=== PATIENT | female | born 1950 | race Caucasian/White ===

== ENCOUNTER 2017-07-01 08:41 | Outpatient (CLI) | payer MEDICARE, BC ==
--- NOTE | 2017-07-01 12:02 | DEXA Report ---
DEXA SCAN: 07/01/2017 CLINICAL INDICATION: Postmenopausal. TECHNIQUE: Dual energy x-ray absorptiometry (DXA) was performed on a [employer] system. Regions measured are the AP spine, femoral neck, and, if needed, forearm. COMPARISON: None. In accordance with the International Society for Clinical Densitometry (ISCD) guidelines, data from previous exams may be reanalyzed using current recommendations and techniques. This is done to allow a more accurate basis for comparison with the current study. FINDINGS: The data for the lumbar spine is as follows: REGION BMD (g/cm/cm) T-SCORE Z-SCORE L1 1.204 0.6 1.9 L2 1.117 -0.7 0.6 L3 1.101 -0.8 0.4 L4 1.113 -0.7 0.5 TOTAL 1.108 -0.8 0.5 NOTE: All evaluable vertebrae are used for classification. The data for the hip is as follows: REGION BMD (g/cm/cm) T-SCORE Z-SCORE Neck 0.756 -2.0 -0.6 TOTAL 0.787 -1.8 -0.6 NOTE: The femoral neck or total proximal femur, whichever is lowest, is used for classification. IMPRESSION: THE WHO CLASSIFICATION BASED ON THE INTERNATIONAL REFERENCE STANDARD IS OSTEOPENIA. THE FRACTURE RISK IS INCREASED. RECOMMENDATION: Patients with diagnosis of osteoporosis or osteopenia should have regular bone mineral density assessment. For those eligible for Medicare, routine testing is allowed once every 2 years. Testing frequency can be increased for patients who have rapidly progressing disease or for those who are receiving medical therapy to restore bone mass. COMMENT: World Health Organization (WHO) definitions for osteoporosis and osteopenia: NORMAL BMD: T-score at -1.0 or higher, fracture risk is low. OSTEOPENIA BMD: T-score between -1.0 and -2.5, fracture risk is increased. OSTEOPOROSIS BMD: T-score at -2.5 or lower, fracture risk high. National Osteoporosis Foundation recommends: 1. Obtain adequate dietary calcium (at least 1200 mg per day) and vitamin D (400 -800 international units per day). 2. Participate, as appropriate, in regular weightbearing and muscle- strengthening exercise. 3. Avoid tobacco use and reduce alcohol and caffeine intake. 4. For more detailed information see the website at www.NOF.org. MTDD
== END 2017-07-01 08:42 | disposition home or self-care (01) ==
LOC: DI 08:41
PROVIDERS: ATTEND Family Medicine
DX: M81.0 Age-related osteoporosis without current pathological fracture (principal)
CPT/HCPCS: 77080

== ENCOUNTER 2017-07-26 09:35 | Emergency (ER) | payer MEDICARE, BC ==
[2017-07-26] MEDS ORDERED: SODIUM CHLORIDE 0.9% 1,000 ML IV ONE (09:49)
[2017-07-26 10:21] LABS: BASOPHILS # (AUTO) 0.1 10^3/uL (0.0-0.1); BASOPHILS % (AUTO) 0.5 %; EOSINOPHILS % (AUTO) 0.1 %; HCT - HEMATOCRIT 35.3 % (37.0-47.0); HGB - HEMOGLOBIN 11.9 g/dL (12.0-16.0); LYMPHOCYTES # (AUTO) 1.2 10^3/uL (1.5-3.5); LYMPHOCYTES % (AUTO) 6.9 %; MEAN CORPUSCULAR HEMOGLOBIN 28.4 pg (27.0-31.0); MEAN CORPUSCULAR HGB CONC 33.6 g/dL (32.0-36.0); MEAN CORPUSCULAR VOLUME 84.5 fL (81.0-99.0); MONOCYTES # (AUTO) 1.1 10^3/uL (0.0-1.0); MONOCYTES % (AUTO) 6.6 %; NEUTROPHILS # (AUTO) 14.3 10^3/uL (1.5-6.6); NEUTROPHILS % (AUTO) 85.9 %; RED BLOOD COUNT 4.18 10^6/uL (4.20-5.40); RED CELL DISTRIBUTION WIDTH 13.6 % (12.0-15.0); UNCORRECTED WHITE BLOOD COUNT 16.7 x10^3/uL; WHITE BLOOD COUNT 16.7 x10^3/uL (4.8-10.8)
[2017-07-26 10:34] LABS: ALBUMIN/GLOBULIN RATIO 1.1 (1.0-2.2); BILIRUBIN,TOTAL 1.6 mg/dL (0.2-1.0); CALCIUM 9.2 mg/dL (8.5-10.3); CREATININE 0.7 mg/dL (0.4-1.0); POTASSIUM 3.3 mmol/L (3.5-5.0); TOTAL PROTEIN 7.6 g/dL (6.7-8.2)
[2017-07-26 11:03] LABS: BILIRUBIN,URINE NEGATIVE (NEGATIVE)
--- NOTE | 2017-07-26 11:04 | XRAY Preliminary Report ---
Exam: XR Chest 1 View IMPRESSION: Normal chest for age and body size, stable. [facility] SITE ID: [id number]
[2017-07-26 11:05] LABS: UA w/ MICROSCOPIC CHARGE YES
--- NOTE | 2017-07-26 11:06 | XRAY Report ---
EXAM: CHEST RADIOGRAPHY, PORTABLE ONE VIEW EXAM DATE: 07/26/2017 10:05 AM. CLINICAL HISTORY: 67-year-old female with syncopal episode. COMPARISON: Two-view chest August 2015 and previous. TECHNIQUE: 1011 our AP upright portable view. FINDINGS: Lungs/Pleura: No focal opacities evident. No pleural effusion. No pneumothorax. Normal volume. Mediastinum: Within exam limitations, cardiomediastinal contour is normal. No pulmonary vascular jacob estion or adenopathy. Other: Trachea is midline. Osseous structures are unremarkable. IMPRESSION: Normal chest for age and body size, stable. [facility] Referring Provider Line: [phone] SITE ID: [id number]
--- NOTE | 2017-07-26 11:06 | XRAY Preliminary Report ---
Exam: XR Wrist 3 View LT IMPRESSION: No fracture or acute posttraumatic abnormality. 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 [facility] SITE ID: [id number]
--- NOTE | 2017-07-26 11:08 | XRAY Report ---
EXAM: LEFT WRIST RADIOGRAPHY, 3 VIEWS EXAM DATE: 07/26/2017 10:33 AM. CLINICAL HISTORY: 67-year-old female with left wrist pain post fall today. COMPARISON: None. TECHNIQUE: Frontal, lateral and oblique views. FINDINGS: Technically limited study due to lack of carpal navicular view. Bones: Unremarkable for age. No fractures or acute bone lesions. Joints: Severe osteoarthritis in the first CMC joint and radial aspect of the carpus. No subluxations or joint effusion. Soft Tissues: Normal. No soft tissue swelling. IMPRESSION: No fracture or acute posttraumatic abnormality. 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 [facility] Referring Provider Line: [phone] SITE ID: [id number]
[2017-07-26 11:21] LABS: WBC,URINE >25 /HPF (0-5)
[2017-07-26] MEDS ORDERED: cefTRIAXone 1 GM in SODIUM CHLORIDE 0.9% MINIBAG 100 ML IV STA (11:22)
[2017-07-26] MEDS ORDERED: ACETAMINOPHEN 325 MG TABLET PO STA (11:22)
[2017-07-26 11:25] LABS: UR CULTURE IF IND INDICATED
[2017-07-26] MEDS ORDERED: ACETAMINOPHEN 325 MG TABLET PO ONE (11:32)
[2017-07-26] MEDS ORDERED: cefTRIAXone 1 GM VIAL ONE (11:32)
[2017-07-26 12:06] VITALS: BP 136/72
[2017-07-26] MEDS ORDERED: oxyCOD/ACETAMIN 5 MG/325 MG TABLET PO STA (12:14)
[2017-07-26] MEDS ORDERED: oxyCOD/ACETAMIN 5 MG/325 MG TABLET PO ONE (12:20)
[2017-07-26] MEDS ORDERED: HYDROcod/ACETAM 5/325 MG TABLET PO STA (12:20)
[2017-07-26] MEDS ORDERED: HYDROcod/ACETAM 5/325 MG TABLET ONE (12:26)
--- NOTE | 2017-07-26 13:26 | ED Physician Documentation ---
History of Present Illness - Stated complaint Stated Complaint: SYNCOPE - Chief complaint Chief Complaint: Neuro - Additonal information Additional information: Patient is a 67-year-old female with a history of urinary tract infections, hypertension diabetes and a distant history of coronary artery disease status post stent. She is here after having a syncopal episode this morning. She has had generalized malaise and sickness for the past several days. She just felt exhausted and tired. She denies any chest pain shortness of breath, nausea, vomiting, constipation diarrhea or lower urinary symptoms. She is felt this way for couple days. The patient went to get up today and believes that she passed out. During the passing an episode she injured her left wrist she denies any injury to her head neck chest abdomen pelvis or other extremities. Review of systems: For pertinent positive and negatives in the review of systems please see the history of present illness, otherwise all other systems have been reviewed and are negative. Dragon disclaimer: Parts of this medical record were created using voice recognition technology. Because of the inherent limitations of this system, occasional same sounding word substitutions do occur and persist despite proofreading. Please read the document for context. Review of Systems Constitutional: reports: Fever, Chills, Myalgias PD PAST MEDICAL HISTORY - Past Medical History Past Medical History: Yes Cardiovascular: Hypertension, Other Respiratory: None Neuro: None Endocrine/Autoimmune: Type 2 diabetes GI: None : Kidney stones HEENT: None Psych: None Musculoskeletal: None Derm: None - Past Surgical History Past Surgical History: Yes General: Cholecystectomy, Appendectomy Ortho: Spine surgery /FOURTH HAND: Hysterectomy Cardiovascular: Coronary stent - Present Medications Home Medications: Ambulatory Orders Medication Instructions Recorded Confirmed Aspirin Chewable [St Tushar 81 mg PO DAILY 08/20/13 08/20/13 Aspirin] Atenolol 50 mg PO 08/20/13 08/20/13 Insulin Glargine,Hum.rec.anlog 49 unit SQ 08/20/13 08/20/13 [Lantus Solostar] Lisinopril [Zestril] 40 mg PO DAILY 08/20/13 08/20/13 Simvastatin [Zocor] 40 mg PO 08/20/13 08/20/13 metFORMIN [Glucophage] 1,000 mg PO BID 08/20/13 08/20/13 Ciprofloxacin [Cipro] 250 BID 11/30/13 11/30/13 HYDROcod/ACETAM 5/325 [Vicodin 1 PRN 11/30/13 11/30/13 5/325] Cephalexin [Keflex] 500 mg PO QID #20 capsule 07/26/17 Hydrocodone/Acetaminophen 1 each PO TID #14 tablet 07/26/17 [Hydrocodon-Acetaminophen 5-325] - Allergies Allergies/Adverse Reactions: Allergies Allergy/AdvReac Type Severity Reaction Status Date / Time hydromorphone HCl * Allergy Severe Nausea Verified 07/26/17 09:44 [From Dilaudid] doxycycline calcium * Allergy Itching Verified 07/26/17 09:44 [From Vibramycin] doxycycline hyclate * Allergy Itching Verified 07/26/17 09:44 [From Vibramycin] doxycycline monohydrate * Allergy Itching Verified 07/26/17 09:44 [From Vibramycin] - Social History Does the pt smoke?: No Smoking Status: Never smoker Does the pt drink ETOH?: No Does the pt have substance abuse?: No - Immunizations Immunizations are current?: Yes - POLST Patient has POLST: No PD ED PE NORMAL - Vitals Vital signs reviewed: Yes - General General: Alert and oriented X 3, No acute distress, Well developed/nourished, Other (Elderly tachycardic female no apparent distress she is alert and oriented and answers questions probably pupils equal round react light oral mucosa moist neck supple) - HEENT HEENT: Atraumatic - Neck Neck: Supple, no meningeal sign - Cardiac Cardiac: RRR, No murmur, No gallop, No rub, Other (Tachycardic no lift heave or murmur) - Respiratory Respiratory: No respiratory distress - Abdomen Abdomen: Normal bowel sounds, Soft, Non tender, Non distended - Derm Derm: Normal color, Warm and dry, No rash, Other - Extremities Extremities: No deformity, No tenderness to palpate, Normal ROM s pain, No edema , Other (Mild circumferential tenderness left wrist without bruising or bony tenderness) - Neuro Neuro: Alert and oriented X 3, No motor deficit Results - Vitals Vitals: Vital Signs - 24 hr 07/26/17 07/26/17 07/26/17 09:40 10:48 12:05 Temperature 36.2 C L 36.7 C 36.6 C Heart Rate 119 H 103 H 94 Respiratory 16 15 15 Rate Blood Pressure 162/82 H 153/65 H 136/72 H O2 Saturation 98 99 99 Oxygen O2 Source Room air - Labs Labs: Laboratory Tests 07/26/17 07/26/17 07/26/17 09:47 10:07 10:07 WBC 16.7 H RBC 4.18 L Hgb 11.9 L Hct 35.3 L MCV 84.5 MCH 28.4 MCHC 33.6 RDW 13.6 Plt Count 259 MPV 9.0 Neut # 14.3 H Lymph # 1.2 L [place] # 1.1 H Eos # 0.0 Baso # 0.1 Absolute Nucleated RBC 0.00 Nucleated RBCs 0.0 Sodium 136 Potassium 3.3 L Chloride 101 Carbon Dioxide 25 Anion Gap 10.0 BUN 12 Creatinine 0.7 Estimated GFR (MDRD) 83 L Glucose 197 H POC Whole Bld Glucose 230 H Calcium 9.2 Total Bilirubin 1.6 H AST 32 ALT 44 Alkaline Phosphatase 60 Troponin I B-Natriuretic Peptide Total Protein 7.6 Albumin 3.9 Globulin 3.7 Albumin/Globulin Ratio 1.1 Lipase 27 Urine Color Urine Clarity Urine pH Ur Specific [place] Urine Protein Urine Glucose (UA) Urine Ketones Urine Occult Blood Urine Nitrite Urine Bilirubin Urine Urobilinogen Ur Leukocyte Esterase Urine RBC Urine WBC Urine WBC Clumps Ur Epithelial Cells Ur Squamous Epith Cells Urine Bacteria Urine Mucus Ur Microscopic Review Urine Culture Comments 07/26/17 07/26/17 07/26/17 10:07 10:07 10:33 WBC RBC Hgb Hct MCV MCH MCHC RDW Plt Count MPV Neut # Lymph # [place] # Eos # Baso # Absolute Nucleated RBC Nucleated RBCs Sodium Potassium Chloride Carbon Dioxide Anion Gap BUN Creatinine Estimated GFR (MDRD) Glucose POC Whole Bld Glucose Calcium Total Bilirubin AST ALT Alkaline Phosphatase Troponin I < 0.04 B-Natriuretic Peptide 46 Total Protein Albumin Globulin Albumin/Globulin Ratio Lipase Urine Color DARK YELLOW Urine Clarity HAZY Urine pH 6.0 Ur Specific [place] 1.010 Urine Protein NEGATIVE Urine Glucose (UA) NEGATIVE Urine Ketones TRACE Urine Occult Blood MODERATE H Urine Nitrite NEGATIVE Urine Bilirubin NEGATIVE Urine Urobilinogen 0.2 (NORMAL) Ur Leukocyte Esterase LARGE H Urine RBC 0-5 Urine WBC >25 H Urine WBC Clumps PRESENT Ur Epithelial Cells None Seen Ur Squamous Epith Cells NONE SEEN Urine Bacteria Few Urine Mucus Few Strands Ur Microscopic Review INDICATED Urine Culture Comments INDICATED PD MEDICAL DECISION MAKING - ED course Complexity details: reviewed old records, reviewed results, re-evaluated patient , d/w patient, d/w family ED course: Very nice 67-year-old female who had been sick for couple days culminating a syncopal episode today and injury to her left wrist. CAT scan of the head and chest x-ray are unremarkable. EKG shows normal sinus rhythm with a normal [place] QRS QT interval without ST segment elevation depression T-wave inversion. Mild tachycardia is noted. Blood work on this patient shows a elevated white blood cell count. The rest of her labs troponin are normal. Urine was suggestive of a urinary tract infection. She is given 1 L of saline and IV Rocephin as well as parenteral narcotic analgesia and she feels much better. X-rays of the right wrist are unremarkable for bony fracture dislocation. She was placed in a thumb spica Velcro splint for comfort. At this point she looks and feels much better. I think her symptoms are secondary to urinary tract infection in regards to the generalized malaise and fatigue that preceded the syncopal episode. There is no evidence of cardiac syncope. Disposition to home Clinical impression: 1. Acute urinary tract infection 2. Vasovagal syncope-doubt cardiac cause 3. Left wrist sprain Departure - Departure Disposition: Home, Self Care Clinical Impression: Syncope Qualifiers: Syncope type: vasovagal syncope Qualified Code(s): R55 - Syncope and collapse Urinary tract infection Qualifiers: Urinary tract infection type: acute cystitis Hematuria presence: without hematuria Qualified Code(s): N30.00 - Acute cystitis without hematuria Left wrist sprain Qualifiers: Encounter type: initial encounter Qualified Code(s): S63.502A - Unspecified sprain of left wrist, initial encounter Instructions: ED Syncope Vasovagal, ED UTI Cystitis Female, ED Sprain Wrist Follow-Up: Karla Echols MD [Primary Care Provider] - Prescriptions: Hydrocodone/Acetaminophen [Hydrocodon-Acetaminophen 5-325] 1 each PO TID #14 tablet Cephalexin [Keflex] 500 mg PO QID #20 capsule
== END 2017-07-26 13:25 | disposition home or self-care (01) ==
LOC: ED 09:35
DX: R55 Syncope and collapse (principal); N30.00 Acute cystitis without hematuria; S63.502A Unspecified sprain of left wrist, initial encounter; X58.XXXA Exposure to other specified factors, initial encounter; R00.0 Tachycardia, unspecified; I10 Essential (primary) hypertension; E11.8 Type 2 diabetes mellitus with unspecified complications; I25.10 Atherosclerotic heart disease of native coronary artery without angina pectoris; Z95.5 Presence of coronary angioplasty implant and graft; Z79.4 Long term (current) use of insulin; Z79.82 Long term (current) use of aspirin
CPT/HCPCS: 36415; 71010; 73110; 80053; 81001; 83690; 83880; 84484; 85025; 87086; 93005; 96374; 99284; A9270; 81003

== ENCOUNTER 2017-08-03 11:16 | Outpatient (CLI) | payer MEDICARE, BC | END 2017-08-03 11:17 | disposition home or self-care (01) | LOC: LAB.R 11:16 | PROVIDERS: ATTEND Family Medicine | DX: N39.0 Urinary tract infection, site not specified (principal); D72.829 Elevated white blood cell count, unspecified | CPT/HCPCS: 87086 ==

== ENCOUNTER 2017-11-25 17:03 | Outpatient (CLI) | payer MEDICARE, BC | END 2017-11-25 17:04 | disposition critical access hospital (66) | LOC: EMS 17:03 | PROVIDERS: ATTEND Surgery | DX: M25.552 Pain in left hip (principal) | CPT/HCPCS: A0425; A0429 ==

== ENCOUNTER 2017-11-25 17:25 | Observation (INO) | payer MEDICARE, BC ==
[2017-11-25] MEDS ORDERED: LIDOCAINE PATCH 5% TOP STA (18:23)
[2017-11-25] MEDS ORDERED: KETOROLAC 60 MG/2 ML VIAL IM STA (18:23)
--- NOTE | 2017-11-25 18:38 | XRAY Report ---
EXAM: LEFT HIP AND PELVIS RADIOGRAPHY EXAM DATE: 11/25/2017 06:14 PM. HISTORY: Pain while walking. COMPARISONS: None. TECHNIQUE: 1 view of the pelvis and 1 view of the hip. FINDINGS: Bones: Normal. No fracture or bone lesion. Joints: The bilateral hip, pubis symphysis, and sacroiliac joints are preserved. Soft Tissues: There is spurring of both greater trochanters which appears chronic. IMPRESSION: No fracture or subluxation. [facility] Referring Provider Line: [phone] SITE ID: [id number]
--- NOTE | 2017-11-25 19:17 | ED Physician Documentation ---
History of Present Illness - Stated complaint Stated Complaint: L HIP PX - Chief complaint Chief Complaint: Ext Problem - Additonal information Additional information: hx from pt 67 female pmhx HTN DM CAD kidney stones s/p appy maged hyst lithotripsy kyphoplasty has had some hip pain for about 2 week int today while walking became severe she was able to hobble home but after resting she was not able to get up 2/2 pain pain is to lat l foot and radiates down anterior leg past the knee no back pain no abd pain no numbness or weakness hurts to move the hip or touch the hip Review of Systems Constitutional: denies: Fever Cardiac: denies: Chest pain / pressure Respiratory: denies: Dyspnea GI: denies: Abdominal Pain Musculoskeletal: reports: Joint pain. 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 Cardiovascular: Coronary stent - Present Medications Home Medications: Ambulatory Orders Medication Instructions Recorded Confirmed Aspirin Chewable [St Tushar 81 mg PO DAILY 08/20/13 11/26/17 Aspirin] Simvastatin [Zocor] 20 mg PO QPM 08/20/13 11/26/17 metFORMIN [Glucophage] 1,000 mg PO BIDWM 08/20/13 11/26/17 Insulin Glargine,Hum.rec.anlog 15 units SUBQ QPM 11/25/17 11/26/17 [Basaglar Kwikpen U-100] Losartan [Cozaar] 50 mg PO DAILY 11/25/17 11/26/17 hydroCHLOROthiazide 25 mg PO DAILY 11/25/17 11/26/17 [Hydrochlorothiazide] Cholecalciferol (Vitamin D3) 2,000 units PO DAILY 11/26/17 11/26/17 [Vitamin D3] Gabapentin [Neurontin] 300 mg PO TID #30 capsule 11/26/17 HYDROcodone/ACET 10/325 [[place] 10 1 tab PO Q4HR PRN #30 tablet 11/26/17 mg/325 mg] Ibuprofen [Motrin] 600 mg PO Q6H PRN #30 tab 11/26/17 cephALEXin [Cephalexin] 500 mg PO QID 7 Days #28 tablet 11/26/17 diazePAM [Valium] 5 - 10 mg PO TID PRN #15 tablet 11/26/17 - Allergies Allergies/Adverse Reactions: Allergies Allergy/AdvReac Type Severity Reaction Status Date / Time hydromorphone HCl * Allergy Severe Nausea Verified 11/25/17 17:33 [From Dilaudid] doxycycline calcium * Allergy Itching Verified 11/25/17 17:33 [From Vibramycin] doxycycline hyclate * Allergy Itching Verified 11/25/17 17:33 [From Vibramycin] doxycycline monohydrate * Allergy Itching Verified 11/25/17 17:33 [From Vibramycin] oxycodone [From Roxicodone] Allergy Rash Verified 11/25/17 19:51 - Social History Does the pt smoke?: No Smoking Status: Never smoker Does the pt drink ETOH?: No Does the pt have substance abuse?: No - Immunizations Immunizations are current?: Yes - POLST Patient has POLST: No PD ED PE NORMAL - Vitals Vital signs reviewed: Yes - Cardiac Cardiac: RRR - Respiratory Respiratory: No respiratory distress, Clear bilaterally - Abdomen Abdomen: Soft, Non tender, Other (no pulsatile mass) - Derm Derm: Normal color, No rash - Extremities Extremities: No deformity, Other (L hip - no red or warm, no swollen no defmormity, no short or rotated, pain to palpate lateral and pain with ROM flex ext more than int ext rotation, MSV intact, no radicular pain with SLR) Results - Vitals Vitals: Vital Signs - 24 hr 11/25/17 11/25/17 17:27 19:09 Temperature 36.3 C L Heart Rate 93 87 Respiratory 17 16 Rate Blood Pressure 173/79 H 143/77 H O2 Saturation 99 97 Oxygen O2 Source Room air - Labs Labs: Microbiology 11/25/17 17:44 Urine Culture - Preliminary Urine,Clean Catch CULTURE IN PROGRESS. RESULTS TO FOLLOW. Laboratory Tests 11/25/17 11/25/17 11/25/17 17:44 19:47 19:47 WBC 10.3 RBC 4.42 Hgb 12.7 Hct 37.1 MCV 84.1 MCH 28.8 MCHC 34.3 RDW 14.2 Plt Count 314 MPV 8.4 Neut # 6.8 H Lymph # 2.6 [place] # 0.8 Eos # 0.1 Baso # 0.1 Absolute Nucleated RBC 0.00 Nucleated RBC % 0.0 ESR 13 Sodium Potassium Chloride Carbon Dioxide Anion Gap BUN Creatinine Estimated GFR (MDRD) Glucose Calcium C-Reactive Protein Urine Color YELLOW Urine Clarity HAZY Urine pH 7.0 Ur Specific [place] 1.010 Urine Protein NEGATIVE Urine Glucose (UA) NEGATIVE Urine Ketones NEGATIVE Urine Occult Blood SMALL H Urine Nitrite NEGATIVE Urine Bilirubin NEGATIVE Urine Urobilinogen 0.2 (NORMAL) Ur Leukocyte Esterase MODERATE H Urine RBC 6-10 H Urine WBC >25 H Urine WBC Clumps PRESENT Ur Squamous Epith Cells RARE Squamous Urine Bacteria Rare Urine Mucus Few Strands Ur Microscopic Review INDICATED Urine Culture Comments INDICATED 11/25/17 19:47 WBC RBC Hgb Hct MCV MCH MCHC RDW Plt Count MPV Neut # Lymph # [place] # Eos # Baso # Absolute Nucleated RBC Nucleated RBC % ESR Sodium 135 Potassium 3.0 L Chloride 98 L Carbon Dioxide 27 Anion Gap 10.0 BUN 9 Creatinine 0.6 Estimated GFR (MDRD) 99 Glucose 121 H Calcium 9.1 C-Reactive Protein < 1.0 Urine Color Urine Clarity Urine pH Ur Specific [place] Urine Protein Urine Glucose (UA) Urine Ketones Urine Occult Blood Urine Nitrite Urine Bilirubin Urine Urobilinogen Ur Leukocyte Esterase Urine RBC Urine WBC Urine WBC Clumps Ur Squamous Epith Cells Urine Bacteria Urine Mucus Ur Microscopic Review Urine Culture Comments - Rads (name of study) hip Radiology: See rad report (neg) CT AP Radiology: See rad report (3 mm L ureteral stone with hydro) CT L spine Radiology: See rad report (no acute lumbar spine fx or dislocation, remote L1 L4 compression fx, degen changes) PD MEDICAL DECISION MAKING - ED course ED course: insidious onset severe LLE pain in a healthy 67 female with a hx L spine comp fx s/p kyphoplasty and osteoporosis acutely worse while walking gave toradol and lido s relief xray neg went to re-evaluate pt and family displeased with pain meds given so far I re-evaluated pt - she winces and holds her hip when i pull on the lidocaine patch to remove it to recheck the hip that would be unlikely to aggravate bony pathology no rash seen to suggest shingles and she has had pain to some extend for weeks so rash should be apparent by now still no sig erythema or swelling pain with ROM, no posterior pelvis or L spine TTP on exam still no abd TTP and no pulsatile mass to suggest AAA could be radicular / sciatica given age will get CT AP and L spine also check labs UA CRP ESR will give decadron for possible nerve inflammation and try hydrocodone as need to know if pt can be made comfortable enough to dc home to pursue outpt workup if ED wup comes up neg if ED work up is neg and pt is able to ambulate after dex and hydrocodone will likely dc with oxy, steroid taper walker and PMD and ortho fup SUMMARY OF WORK UP no fx on xray or CT no infection on exam, also aferbile nl WBC and nl ESR CRP, do not think pt has cellulitis shingles septic joint or nec fasc, does not have back/L spine pain, CT L spine neg and nl ESR and CR make epidural abscess unlikely as well 3 mm ureteral stone on CT and + UA so have given antibiotics but doubt would cause hip pain with ROM and palapation of lateral hip - and only a 3 mm stone and only mild hydro so will add antibiotics but do not feel pt needs emergent urology eval as the stone should pass without sig difficulty - would normally consider sending this combo home with close follow up no AAA no compression fx no pelvic mass, bony mets etc not the location to raise suspicion of DVT good perfusion not suggestive of ischemia carefully and full explained to pt that have done a very extensive work up tonight and I have not found any dangerous problem to be causing her pain that needs antibiotic surgery etc recommended dc home with vicodin steroid taper lido patches and a walker to fup with PMD for a recheck and further work up eval as needed explained also that I am not saying nothing is wrong or won't be diagnosed at a later date as sx progress etc but family and pt do not feel the pt can go home safely, she does not feel able to walk, does not think she will be able to ride in the car if the pt needs to be sent home by ambulance and carried into the house - that is not a safe dc plan explained to pt and family that admitting for pain alone without a diagnosis meriting tx while admitted (such as surgery or IV antibiotics) is at risk for not being covered by insurance and that we might be able to admit for pain and safety but they might have to pay the pill themselves if insurance does not cover - there is no way for me to know tonight if this will or won't be covered or how much it might cost pt agrees to try and ambulate with a walker pt could not ambulate - could not get out of bed at all asked hospitalist to please come eval for admission hospitalist agrees to admit to obs Departure - Departure Disposition: ED Place in Observation Clinical Impression: Renal colic on left side Hip pain Qualifiers: Laterality: left Qualified Code(s): M25.552 - Pain in left hip UTI (urinary tract infection) Qualifiers: Urinary tract infection type: site unspecified Hematuria presence: with hematuria Qualified Code(s): N39.0 - Urinary tract infection, site not specified Condition: Stable Discharge Date/Time: 11/25/17 23:07
[2017-11-25] MEDS ORDERED: oxyCODONE 5 MG TABLET PO STA (19:30)
[2017-11-25] MEDS ORDERED: DEXAMETHASONE 10 MG/ML VIAL PO STA (19:32)
[2017-11-25] MEDS ORDERED: HYDROcod/ACETAM 5/325 MG TABLET PO STA (19:45)
[2017-11-25] MEDS ORDERED: CHERRY SYRUP 10 ML UDC PO ONE (19:46)
[2017-11-25 20:11] LABS: BASOPHILS # (AUTO) 0.1 10^3/uL (0.0-0.1); BASOPHILS % (AUTO) 0.7 %; EOSINOPHILS # (AUTO) 0.1 10^3/uL (0.0-0.7); HGB - HEMOGLOBIN 12.7 g/dL (12.0-16.0); LYMPHOCYTES # (AUTO) 2.6 10^3/uL (1.5-3.5); MEAN CORPUSCULAR HEMOGLOBIN 28.8 pg (27.0-31.0); MEAN CORPUSCULAR HGB CONC 34.3 g/dL (32.0-36.0); MEAN CORPUSCULAR VOLUME 84.1 fL (81.0-99.0); MEAN PLATELET VOLUME 8.4 fL (7.9-10.8); MONOCYTES # (AUTO) 0.8 10^3/uL (0.0-1.0); MONOCYTES % (AUTO) 7.6 %; NEUTROPHILS # (AUTO) 6.8 10^3/uL (1.5-6.6); NEUTROPHILS % (AUTO) 65.7 %; PLT - PLATELET COUNT 314 10^3/uL (130-450); RED BLOOD COUNT 4.42 10^6/uL (4.20-5.40); RED CELL DISTRIBUTION WIDTH 14.2 % (12.0-15.0); WHITE BLOOD COUNT 10.3 x10^3/uL (4.8-10.8)
[2017-11-25 20:21] LABS: BUN - BLOOD UREA NITROGEN 9 mg/dL (6-20); CALCIUM 9.1 mg/dL (8.5-10.3); CARBON DIOXIDE - CO2 27 mmol/L (21-32); CHLORIDE 98 mmol/L (101-111); CREATININE 0.6 mg/dL (0.4-1.0); GFR - MDRD 99 (>89); GLUCOSE 121 mg/dL (70-100); SODIUM 135 mmol/L (135-145)
[2017-11-25 20:24] LABS: CRP - C-REACTIVE PROTEIN < 1.0 mg/dL (0-1.0)
--- NOTE | 2017-11-25 20:32 | CT Report ---
EXAM: CT ABDOMEN AND PELVIS EXAM DATE: 11/25/2017 08:20 PM. CLINICAL HISTORY: Severe LLE pain, eval for referred pain from abd p. COMPARISONS: 12/01/2013. TECHNIQUE: Routine axial helical CT imaging was performed through the abdomen and pelvis without IV c ontrast. Reconstructions: Coronal and sagittal. In accordance with CT protocol optimization, one or more of the following dose reduction techniques w ere utilized for this exam: automated exposure control, adjustment of mA and/or KV based on patient s ize, or use of iterative reconstructive technique. FINDINGS: Lung Bases: Unremarkable. Abdominal Organs: There is bilateral nephrolithiasis. There is mild left hydronephrosis and hydrouret er secondary to a 0.3 cm stone within the low left ureter. The liver, spleen, pancreas, and adrenal g lands demonstrate no significant abnormalities. Gallbladder/bile ducts: The gallbladder is surgically absent. No significant bile duct dilatation. Peritoneal Cavity: No free fluid, free air or anastacio adenopathy. Bowel is grossly unremarkable. Pelvic Organs: No bladder stones or wall thickening. Noncontrast images of the visualized pelvic orga ns are unremarkable. Vasculature: Unremarkable. Other: There are remote L1 and L4 compression fractures. No acute bony abnormalities are seen. IMPRESSION: There is bilateral nephrolithiasis. There is mild left hydronephrosis and hydroureter secondary to a 0.3 cm stone within the low left ureter. Referring Provider Line: [phone] SITE ID: [id number]
[2017-11-25] MEDS ORDERED: POTASSIUM CHLORIDE 20 MEQ TABLET PO STA (20:37)
--- NOTE | 2017-11-25 20:44 | CT Report ---
EXAM: CT LUMBAR SPINE WITHOUT CONTRAST EXAM DATE: 11/25/2017 08:18 PM. CLINICAL HISTORY: L hip and leg pain, hx compression fx. COMPARISONS: 12/01/2013. TECHNIQUE: Thin-section axial images were acquired of the lumbar spine from T12 to S1 without contras t. Post-processing: Coronal and sagittal reformats. Other: None. In accordance with CT protocol optimization, one or more of the following dose reduction techniques w ere utilized for this exam: automated exposure control, adjustment of mA and/or KV based on patient s ize, or use of iterative reconstructive technique. FINDINGS: Alignment: No evidence of spondylolisthesis. Bones: Bones are osteopenic. There are remote L1 and L4 compression fractures. No clearly acute bony abnormalities are seen. Disk Levels/Facets: T12-L1: Unremarkable. L1-L2: There is mild spinal stenosis and right-sided neural foraminal narrowing secondary to bony ret ropulsion and facet arthrosis. L2-L3: Unremarkable. L3-L4: There is moderate spinal stenosis and neural foramen narrowing secondary to disk bulge, ligame ntum flavum hypertrophy, and facet arthrosis. L4-L5: Unremarkable. L5-S1: Unremarkable. Musculature: Normal. No fatty atrophy. Other: The visualized retroperitoneum is unremarkable. IMPRESSION: 1. No evidence of acute lumbar spine fracture or dislocation. 2. There are remote L1 and L4 compression fractures. 3. There is degenerative disease which is most pronounced at the L1-L2 and L3-L4 levels. 4. Intra-abdominal findings are detailed separately. [facility] Referring Provider Line: [phone] SITE ID: [id number]
[2017-11-25 21:07] LABS: BILIRUBIN,URINE NEGATIVE (NEGATIVE); GLUCOSE, URINE (UA) NEGATIVE (NEGATIVE); KETONES,URINE (UA) NEGATIVE (NEGATIVE); LEUKOCYTE ESTERASE, URINE MODERATE (NEGATIVE); NITRITE,URINE NEGATIVE (NEGATIVE); OCCULT BLOOD,URINE SMALL (NEGATIVE); PROTEIN,URINE NEGATIVE (NEGATIVE); UROBILINOGEN,URINE 0.2 (NORMAL) E.U./dL (NORMAL)
[2017-11-25 21:08] LABS: CLARITY,URINE HAZY (CLEAR)
[2017-11-25 21:15] LABS: BACTERIA,URINE Rare /HPF (None Seen); MUCUS,URINE Few Strands; SQUAMOUS EPITHELIAL CELL,UR RARE Squamous (<= Few); WBC CLUMPS,URINE PRESENT
[2017-11-25] MEDS ORDERED: cephALEXin 250 MG CAPSULE PO STA (21:23)
[2017-11-25] MEDS ORDERED: HYDROcod/ACET 5/325 Prepack 6 PO STA (21:23)
[2017-11-25] MEDS ORDERED: CEPHALEXIN 250 MG Prepack 8 PO ONE (21:23)
[2017-11-25] MEDS ORDERED: SODIUM CHLORIDE FLUSH 0.9% 10 ML SYRINGE IVP PRN (22:08)
--- NOTE | 2017-11-25 22:27 | HISTORY & PHYSICAL EXAMINATION ---
Chief Complaint - Chief Complaint Chief Complaint: Intractable pain History of Present Illness - Admitted From Admitted From:: Home - History of Present Illness HPI Comment/Other: Ms. Sadie Berman is a very pleasant 67-year-old female who typically walks 3 miles a day. About a week ago she has been began to experience some left hip pain as well as a knot in the area. This has continued to worsen and the patient has had an increasingly noticeable limp according to her daughters.Radiate down to her mendez and became intractable and she came to the emergency department at the [facility][1]. A full workup has been unable to detect any physical source of the pain however the patient's pain remains intractable and she will be admitted for the intractable pain at this time. 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 - Substance History Use: Uses substance without health or social issues: NONE Abuse: Recurrent use of substance despite neg consequences: NONE Dependence: Experiences withdrawal or developed tolerances: NONE - POLST Patient has POLST: No POLST Status: Full Code Meds/Allgy - Home Medications Home Medications: Ambulatory Orders Medication Instructions Recorded Confirmed Aspirin Chewable [[place] 81 mg PO DAILY 08/20/13 11/25/17 Aspirin] Simvastatin [Zocor] 20 mg PO DAILY 08/20/13 11/25/17 metFORMIN [Glucophage] 1,000 mg PO BID 08/20/13 11/25/17 HYDROcod/ACETAM 5/325 [[place] 5/325] 1 ea PO Q6H PRN #15 tablet 11/25/17 Hydrocodone/Acetaminophen 1 each PO TID PRN 11/25/17 11/25/17 [Hydrocodon-Acetaminophen 5-325] Insulin Glargine,Hum.rec.anlog 15 units SUBQ QPM 11/25/17 11/25/17 [Basaglar Kwikpen U-100] Lidocaine Patch 5% [Lidoderm Patch] 1 each TOP DAILY PRN #10 patch 11/25/17 Losartan [Cozaar] 50 mg PO DAILY 11/25/17 11/25/17 Tamsulosin [Flomax] 0.4 mg PO DAILY #7 capsule 11/25/17 hydroCHLOROthiazide 50 mg PO DAILY 11/25/17 11/25/17 [Hydrochlorothiazide] - Allergies Allergies/Adverse Reactions: Allergies Allergy/AdvReac Type Severity Reaction Status Date / Time hydromorphone HCl * Allergy Severe Nausea Verified 11/25/17 17:33 [From Dilaudid] doxycycline calcium * Allergy Itching Verified 11/25/17 17:33 [From Vibramycin] doxycycline hyclate * Allergy Itching Verified 11/25/17 17:33 [From Vibramycin] doxycycline monohydrate * Allergy Itching Verified 11/25/17 17:33 [From Vibramycin] oxycodone [From Roxicodone] Allergy Rash Verified 11/25/17 19:51 Review of Systems - Constitutional Constitutional: denies: Fatigue, Fever, Chills - Eyes Eyes: denies: Pain, Irritation, Blurred vision - Ears, Nose & Throat Ears, Nose & Throat: denies: Ear pain, Hearing loss, Hearing aids, Tinnitus, Vertigo, Nasal discharge - Cardiovascular Cariovascular: denies: Irregular heart rate, Palpitations, Chest pain, Edema - Respiratory Respiratory: denies: Cough, Sputum production, Wheezing, Snoring - Gastrointestinal Gastrointestinal: denies: Abdominal pain, Abdominal distention, Constipation, Diarrhea, Rectal bleeding - Genitourinary Genitourinary: denies: Dysuria, Frequency, Urgency, Hematuria - Musculoskeletal Musculoskeletal: reports: Joint pain. denies: Muscle pain, Back pain, Muscle aches - Integumentary Integumentary: denies: Rash, Pruritis, Lesions, Dryness - Neurological Neurological: denies: General weakness, Focal weakness, Headache, Dizziness - Psychiatric Psychiatric: denies: Depression, Anxiety, Suicidal - Endocrine Endocrine: denies: Polyuria, Polydypsia, Polyphagia - Hematologic/Lymphatic Hematologic/Lymphatic: denies: Anemia, Bruising, Petechiae - All Other Systems All Other Systems: reports: Reviewed and negative Exam - Vital Signs Reviewed Vital Signs: Yes Vital Signs: Vital Signs x48h Temp Pulse Resp BP Pulse Ox 11/25/17 19:09 87 16 143/77 H 97 11/25/17 17:27 36.3 C L 93 17 173/79 H 99 - Physical Exam General Appearance: positive: No acute distress, Alert Eyes Bilateral: positive: Normal inspection, PERRL, EOMI ENT: positive: ENT inspection nml, Pharynx nml, No signs of dehydration Neck: positive: Nml inspection, Thyroid nml, No JVD, Trachea midline. negative : Thyromegaly Respiratory: positive: Chest non-tender, No respiratory distress, Breath sounds nml Cardiovascular: positive: Regular rate & rhythm, No murmur, No gallop. negative : Systolic murmur, Diastolic murmur Peripheral Pulses: positive: 1+ Abdomen: positive: Non-tender, No organomegaly, Nml bowel sounds, No distention. negative: Guarding, Rebound Back: positive: Nml inspection. negative: CVA tenderness (R), CVA tenderness (L ) Skin: positive: Color nml, No rash, Warm, Dry Extremities: positive: No pedal edema. negative: Full ROM, Nml appearance, Calf tenderness, Joint swelling Neurologic/Psychiatric: positive: Oriented x3, CN's nml (2-12), Motor nml, Sensation nml, Mood/affect nml Conclusion/Plan - Problem List (1) Hip pain Conclusion/Plan: The workup has been negative for any pathologic issues thus far. We will start the patient on oxycodone for her acute pain and obtain a consultation with orthopedic surgery. Qualifiers: Laterality: left Qualified Code(s): M25.552 - Pain in left hip - Lab Results Lab results reviewed: Yes Fish Bones: 11/25/17 19:47 11/25/17 19:47 - Diagnostic Imaging Results Diagnostic Imaging Results: positive: Final report reviewed Diagnostic Imaging Results Comments: EXAM: LEFT HIP AND PELVIS RADIOGRAPHY EXAM DATE: 11/25/2017 06:14 PM. HISTORY: Pain while walking. COMPARISONS: None. TECHNIQUE: 1 view of the pelvis and 1 view of the hip. FINDINGS: Bones: Normal. No fracture or bone lesion. Joints: The bilateral hip, pubis symphysis, and sacroiliac joints are preserved. Soft Tissues: There is spurring of both greater trochanters which appears chronic. IMPRESSION: No fracture or subluxation. EXAM: CT ABDOMEN AND PELVIS EXAM DATE: 11/25/2017 08:20 PM. CLINICAL HISTORY: Severe LLE pain, eval for referred pain from abd p. COMPARISONS: 12/01/2013. TECHNIQUE: Routine axial helical CT imaging was performed through the abdomen and pelvis without IV contrast. Reconstructions: Coronal and sagittal. In accordance with CT protocol optimization, one or more of the following dose reduction techniques were utilized for this exam: automated exposure control, adjustment of mA and/or KV based on patient size, or use of iterative reconstructive technique. FINDINGS: Lung Bases: Unremarkable. Abdominal Organs: There is bilateral nephrolithiasis. There is mild left hydronephrosis and hydroureter secondary to a 0.3 cm stone within the low left ureter. The liver, spleen, pancreas, and adrenal glands demonstrate no significant abnormalities. Gallbladder/bile ducts: The gallbladder is surgically absent. No significant bile duct dilatation. Peritoneal Cavity: No free fluid, free air or anastacio adenopathy. Bowel is grossly unremarkable. Pelvic Organs: No bladder stones or wall thickening. Noncontrast images of the visualized pelvic organs are unremarkable. Vasculature: Unremarkable. Other: There are remote L1 and L4 compression fractures. No acute bony abnormalities are seen. IMPRESSION: There is bilateral nephrolithiasis. There is mild left hydronephrosis and hydroureter secondary to a 0.3 cm stone within the low left ureter. EXAM: CT LUMBAR SPINE WITHOUT CONTRAST EXAM DATE: 11/25/2017 08:18 PM. CLINICAL HISTORY: L hip and leg pain, hx compression fx. COMPARISONS: 12/01/2013. TECHNIQUE: Thin-section axial images were acquired of the lumbar spine from T12 to S1 without contrast. Post-processing: Coronal and sagittal reformats. Other: None. In accordance with CT protocol optimization, one or more of the following dose reduction techniques were utilized for this exam: automated exposure control, adjustment of mA and/or KV based on patient size, or use of iterative reconstructive technique. FINDINGS: Alignment: No evidence of spondylolisthesis. Bones: Bones are osteopenic. There are remote L1 and L4 compression fractures. No clearly acute bony abnormalities are seen. Disk Levels/Facets: T12-L1: Unremarkable. L1-L2: There is mild spinal stenosis and right-sided neural foraminal narrowing secondary to bony retropulsion and facet arthrosis. L2-L3: Unremarkable. L3-L4: There is moderate spinal stenosis and neural foramen narrowing secondary to disk bulge, ligamentum flavum hypertrophy, and facet arthrosis. L4-L5: Unremarkable. L5-S1: Unremarkable. Musculature: Normal. No fatty atrophy. Other: The visualized retroperitoneum is unremarkable. IMPRESSION: 1. No evidence of acute lumbar spine fracture or dislocation. 2. There are remote L1 and L4 compression fractures. 3. There is degenerative disease which is most pronounced at the L1-L2 and L3- L4 levels. 4. Intra-abdominal findings are detailed separately. Core Measures - Anticipated LOS I expect patient to be DC'd or transferred within 96 hours.: Yes - DVT/VTE - Prophylaxis VTE/DVT Device ordered at admit?: Yes
[2017-11-26] MEDS: HYDROcod/ACETAM 10 MG/325 MG TABLET PO PRN ×3 (00:26→10:57)
[2017-11-26] MEDS ORDERED: SODIUM CHLORIDE FLUSH 0.9% 10 ML SYRINGE IVP SCH (06:00)
[2017-11-26] MEDS ORDERED: NON FORMULARY MED (Simvastatin [Zocor] 20 MG) PO SCH (09:00)
[2017-11-26] MEDS ORDERED: ASPIRIN CHEW 81 MG TABLET PO SCH (09:00)
[2017-11-26] MEDS ORDERED: LOSARTAN 50 MG TABLET PO SCH (09:00)
[2017-11-26] MEDS ORDERED: POLYETHYLENE GLYCOL 3350 17 GM PACKET PO SCH (09:00)
[2017-11-26] MEDS ORDERED: hydroCHLOROthiazide 25 MG TABLET PO SCH (09:00)
--- NOTE | 2017-11-26 11:04 | Discharge Plan ---
Discharge Plan Disposition: 01 Home, Self Care Condition: Stable Prescriptions: HYDROcodone/ACET 10/325 [[place] 10 mg/325 mg] 1 tab PO Q4HR PRN #30 tablet PRN Reason: Pain 8 to 10 cephALEXin [Cephalexin] 500 mg PO QID 7 Days #28 tablet diazePAM [Valium] 5 - 10 mg PO TID PRN #15 tablet PRN Reason: Spasms Gabapentin [Neurontin] 300 mg PO TID #30 capsule Ibuprofen [Motrin] 600 mg PO Q6H PRN #30 tab PRN Reason: Pain Diet: Diabetic Activity Restrictions: Activity as Tolerated (Try to rest for the next 5-7 days) Shower Restrictions: No Driving Restrictions: No Weight Bearing: Full Weight Additional Instructions or Follow Up instructions: The hip is not red or warm and I don't think there is an infected joint. The blood work also indicates there is not a joint infection These labs and CT scan also make a spine infection very unlikely There is no rash to suggest shingles as the cause for the one sided pain The xray and CT scan did not show any bony problems of the hip such as a fracture or dislocation. The CT scan did show a left sided kidney stone and you have a urine infection - this can commonly cause left flank, low abdomen, and groin pain - perhaps that is part of the reason the hip is hurting - though I wouldn't expect kidney stone pain to worsen with palpating and moving the hip - the stone is small enough that it should pass on it's own - given the coinciding infection i think it is very important for you to have close follow up with your PMD to be sure the stone passes and the infection clears - please filter your urine to help determine when the stone has passed. Also the CT scan did not show any aneurysm or bone cancer or pelvic mass to cause your pain. The pain seems to be nerve related / sciatica as it runs down your leg. There also appears to be an inflamed bursa near your hip. I think it is safe for you to go home with gabapentin for nerve pain, valium to relax the muscles, motrin for mild pain, vicodin for severe pain and antibiotics for the urine infection. Close follow up with your PMD is very important - it is not uncommon for a diagnosis that was not apparent initially to become apparent as time passes and the symptoms progress. If course you can always come back to the ER if you are worse in any way No Smoking: If you smoke, Please STOP! Call for help. Follow-up with: Karla Echols MD [Primary Care Provider] -
[2017-11-26 11:36] VITALS: BP 136/64
--- NOTE | 2017-11-26 15:41 | DISCHARGE SUMMARY ---
Discharge Summary Admit Date: 11/25/17 Discharge Date: 11/26/17 Discharging Provider: John Weaver MD Primary Care Provider: Karla Echols MD Code Status: Attempt Resuscitation Condition at Discharge: Stable Discharge Disposition: Home, Self Care - DIAGNOSES Admission Diagnoses: 1. Intractable hip pain Discharge Diagnoses with Status of Each Condition: 1. Intractable hip pain: Improved - HPI History of Present Illness: Ms. Sadie Berman is a very pleasant 67-year-old female who typically walks 3 miles a day. About a week ago she has been began to experience some left hip pain as well as a knot in the area. This has continued to worsen and the patient has had an increasingly noticeable limp according to her daughters.Radiate down to her mendez and became intractable and she came to the emergency department at the [facility]. A full workup has been unable to detect any physical source of the pain however the patient's pain remains intractable and she will be admitted for the intractable pain at this time. - HOSPITAL COURSE Hospital Course: Patient presented with left hip pain. Patient's pain could not be controlled in the emergency department. Patient underwent extensive imaging without any findings to explain the pain. The patient was placed on Vicodin and given Toradol and Decadron in the emergency department with which patient had significant improvement in her symptoms. The patient's pain control was adequate on morning after observation. After long discussion with patient and her daughter we came up with a regimen for pain control for the patient. Given her description of symptoms it appeared this is likely sciatica. The patient was discharged home with Vicodin for severe pain, Motrin for moderate pain, Neurontin 3 times a day and Valium as needed for muscle spasms. Patient was also told to place heat on her thigh in the area of the pain. Patient was advised to rest for the next 5-7 days and do stretching exercises that were explained to her. The orthopedic surgeon did look over the patient's imaging and did not find any evidence of infection, septic joint or fractures he stated that if patient needed to follow-up she could in his clinic. - ALLERGIES Allergies/Adverse Reactions: Allergies Allergy/AdvReac Type Severity Reaction Status Date / Time hydromorphone HCl * Allergy Severe Nausea Verified 11/25/17 17:33 [From Dilaudid] doxycycline calcium * Allergy Itching Verified 11/25/17 17:33 [From Vibramycin] doxycycline hyclate * Allergy Itching Verified 11/25/17 17:33 [From Vibramycin] doxycycline monohydrate * Allergy Itching Verified 11/25/17 17:33 [From Vibramycin] oxycodone [From Roxicodone] Allergy Rash Verified 11/25/17 19:51 - MEDICATIONS Home Medications: Ambulatory Orders Medication Instructions Recorded Confirmed Aspirin Chewable [St Tushar 81 mg PO DAILY 08/20/13 11/26/17 Aspirin] Simvastatin [Zocor] 20 mg PO QPM 08/20/13 11/26/17 metFORMIN [Glucophage] 1,000 mg PO BIDWM 08/20/13 11/26/17 Insulin Glargine,Hum.rec.anlog 15 units SUBQ QPM 11/25/17 11/26/17 [Basaglar Kwikpen U-100] Losartan [Cozaar] 50 mg PO DAILY 11/25/17 11/26/17 hydroCHLOROthiazide 25 mg PO DAILY 11/25/17 11/26/17 [Hydrochlorothiazide] Cholecalciferol (Vitamin D3) 2,000 units PO DAILY 11/26/17 11/26/17 [Vitamin D3] Gabapentin [Neurontin] 300 mg PO TID #30 capsule 11/26/17 HYDROcodone/ACET 10/325 [[place] 10 1 tab PO Q4HR PRN #30 tablet 11/26/17 mg/325 mg] Ibuprofen [Motrin] 600 mg PO Q6H PRN #30 tab 11/26/17 cephALEXin [Cephalexin] 500 mg PO QID 7 Days #28 tablet 11/26/17 diazePAM [Valium] 5 - 10 mg PO TID PRN #15 tablet 11/26/17 - PHYSICAL EXAM AT DISCHARGE General Appearance: positive: No acute distress, Alert Eyes Bilateral: positive: Normal inspection, PERRL, EOMI, No lid inflammation, Conjunctivae nml, No scleral icterus ENT: positive: ENT inspection nml, Pharynx nml, No signs of dehydration. negative: Purulent nasal drainage, Pharyngeal erythema, Oral lesions Neck: positive: Nml inspection, Thyroid nml, No JVD, Trachea midline. negative : Thyromegaly, Lymphadenopathy (R), Lymphadenopathy (L), Stiff neck, Carotid bruit, Tracheal deviation Respiratory: positive: Chest non-tender, No respiratory distress, Breath sounds nml. negative: Wheezes, Rales, Rhonchi Cardiovascular: positive: Regular rate & rhythm, No murmur, No gallop Peripheral Pulses: positive: 2+ Abdomen: positive: Non-tender, No organomegaly, Nml bowel sounds, No distention. negative: Guarding, Rebound, Hepatomegaly Back: positive: Nml inspection. negative: CVA tenderness (R), CVA tenderness (L ) Skin: positive: Color nml, No rash, Warm. negative: Cyanosis, Pallor Extremities: positive: Full ROM, Other (Tender in the anterior area of the left hip. She has mild swelling in the area as well. She has full ROM but does have pain radiating down her leg with extention.) Neurologic/Psychiatric: positive: Oriented x3, CN's nml (2-12), Motor nml, Sensation nml, Mood/affect nml - LABS Result Diagrams: 11/25/17 19:47 11/25/17 19:47 Other Lab Results: Laboratory Results WBC 10.3 x10^3/uL (4.8-10.8) 11/25/17 19:47 RBC 4.42 10^6/uL (4.20-5.40) 11/25/17 19:47 Hgb 12.7 g/dL (12.0-16.0) 11/25/17 19:47 Hct 37.1 % (37.0-47.0) 11/25/17 19:47 MCV 84.1 fL (81.0-99.0) 11/25/17 19:47 MCH 28.8 pg (27.0-31.0) 11/25/17 19:47 MCHC 34.3 g/dL (32.0-36.0) 11/25/17 19:47 RDW 14.2 % (12.0-15.0) 11/25/17 19:47 Plt Count 314 10^3/uL (130-450) 11/25/17 19:47 MPV 8.4 fL (7.9-10.8) 11/25/17 19:47 Neut # 6.8 10^3/uL (1.5-6.6) H 11/25/17 19:47 Lymph # 2.6 10^3/uL (1.5-3.5) 11/25/17 19:47 [place] # 0.8 10^3/uL (0.0-1.0) 11/25/17 19:47 Eos # 0.1 10^3/uL (0.0-0.7) 11/25/17 19:47 Baso # 0.1 10^3/uL (0.0-0.1) 11/25/17 19:47 Absolute Nucleated RBC 0.00 x10^3/uL 11/25/17 19:47 Nucleated RBC % 0.0 /100WBC 11/25/17 19:47 ESR 13 mm/Hr (0-30) 11/25/17 19:47 Sodium 135 mmol/L (135-145) 11/25/17 19:47 Potassium 3.0 mmol/L (3.5-5.0) L 11/25/17 19:47 Chloride 98 mmol/L (101-111) L 11/25/17 19:47 Carbon Dioxide 27 mmol/L (21-32) 11/25/17 19:47 Anion Gap 10.0 (6-13) 11/25/17 19:47 BUN 9 mg/dL (6-20) 11/25/17 19:47 Creatinine 0.6 mg/dL (0.4-1.0) 11/25/17 19:47 Estimated GFR (MDRD) 99 (>89) 11/25/17 19:47 Glucose 121 mg/dL (70-100) H 11/25/17 19:47 Calcium 9.1 mg/dL (8.5-10.3) 11/25/17 19:47 C-Reactive Protein < 1.0 mg/dL (0-1.0) 11/25/17 19:47 Urine Color YELLOW 11/25/17 17:44 Urine Clarity HAZY (CLEAR) 11/25/17 17:44 Urine pH 7.0 PH (5.0-7.5) 11/25/17 17:44 Ur Specific [place] 1.010 (1.002-1.030) 11/25/17 17:44 Urine Protein NEGATIVE mg/dL (NEGATIVE) 11/25/17 17:44 Urine Glucose (UA) NEGATIVE mg/dL (NEGATIVE) 11/25/17 17:44 Urine Ketones NEGATIVE mg/dL (NEGATIVE) 11/25/17 17:44 Urine Occult Blood SMALL (NEGATIVE) H 11/25/17 17:44 Urine Nitrite NEGATIVE (NEGATIVE) 11/25/17 17:44 Urine Bilirubin NEGATIVE (NEGATIVE) 11/25/17 17:44 Urine Urobilinogen 0.2 (NORMAL) E.U./dL (NORMAL) 11/25/17 17:44 Ur Leukocyte Esterase MODERATE (NEGATIVE) H 11/25/17 17:44 Urine RBC 6-10 /HPF (0-5) H 11/25/17 17:44 Urine WBC >25 /HPF (0-5) H 11/25/17 17:44 Urine WBC Clumps PRESENT 11/25/17 17:44 Ur Squamous Epith Cells RARE Squamous (<= Few) 11/25/17 17:44 Urine Bacteria Rare /HPF (None Seen) 11/25/17 17:44 Urine Mucus Few Strands 11/25/17 17:44 Ur Microscopic Review INDICATED 11/25/17 17:44 Urine Culture Comments INDICATED 11/25/17 17:44 - DIAGNOSTIC IMAGING Diagnostic Imaging Results: Final report reviewed Diagnostic Imaging Results Comments: EXAM: LEFT HIP AND PELVIS RADIOGRAPHY EXAM DATE: 11/25/2017 06:14 PM. HISTORY: Pain while walking. COMPARISONS: None. TECHNIQUE: 1 view of the pelvis and 1 view of the hip. FINDINGS: Bones: Normal. No fracture or bone lesion. Joints: The bilateral hip, pubis symphysis, and sacroiliac joints are preserved. Soft Tissues: There is spurring of both greater trochanters which appears chronic. IMPRESSION: No fracture or subluxation. EXAM: CT ABDOMEN AND PELVIS EXAM DATE: 11/25/2017 08:20 PM. CLINICAL HISTORY: Severe LLE pain, eval for referred pain from abd p. COMPARISONS: 12/01/2013. TECHNIQUE: Routine axial helical CT imaging was performed through the abdomen and pelvis without IV contrast. Reconstructions: Coronal and sagittal. In accordance with CT protocol optimization, one or more of the following dose reduction techniques were utilized for this exam: automated exposure control, adjustment of mA and/or KV based on patient size, or use of iterative reconstructive technique. FINDINGS: Lung Bases: Unremarkable. Abdominal Organs: There is bilateral nephrolithiasis. There is mild left hydronephrosis and hydroureter secondary to a 0.3 cm stone within the low left ureter. The liver, spleen, pancreas, and adrenal glands demonstrate no significant abnormalities. Gallbladder/bile ducts: The gallbladder is surgically absent. No significant bile duct dilatation. Peritoneal Cavity: No free fluid, free air or anastacio adenopathy. Bowel is grossly unremarkable. Pelvic Organs: No bladder stones or wall thickening. Noncontrast images of the visualized pelvic organs are unremarkable. Vasculature: Unremarkable. Other: There are remote L1 and L4 compression fractures. No acute bony abnormalities are seen. IMPRESSION: There is bilateral nephrolithiasis. There is mild left hydronephrosis and hydroureter secondary to a 0.3 cm stone within the low left ureter. EXAM: CT LUMBAR SPINE WITHOUT CONTRAST EXAM DATE: 11/25/2017 08:18 PM. CLINICAL HISTORY: L hip and leg pain, hx compression fx. COMPARISONS: 12/01/2013. TECHNIQUE: Thin-section axial images were acquired of the lumbar spine from T12 to S1 without contrast. Post-processing: Coronal and sagittal reformats. Other: None. In accordance with CT protocol optimization, one or more of the following dose reduction techniques were utilized for this exam: automated exposure control, adjustment of mA and/or KV based on patient size, or use of iterative reconstructive technique. FINDINGS: Alignment: No evidence of spondylolisthesis. Bones: Bones are osteopenic. There are remote L1 and L4 compression fractures. No clearly acute bony abnormalities are seen. Disk Levels/Facets: T12-L1: Unremarkable. L1-L2: There is mild spinal stenosis and right-sided neural foraminal narrowing secondary to bony retropulsion and facet arthrosis. L2-L3: Unremarkable. L3-L4: There is moderate spinal stenosis and neural foramen narrowing secondary to disk bulge, ligamentum flavum hypertrophy, and facet arthrosis. L4-L5: Unremarkable. L5-S1: Unremarkable. Musculature: Normal. No fatty atrophy. Other: The visualized retroperitoneum is unremarkable. IMPRESSION: 1. No evidence of acute lumbar spine fracture or dislocation. 2. There are remote L1 and L4 compression fractures. 3. There is degenerative disease which is most pronounced at the L1-L2 and L3- L4 levels. 4. Intra-abdominal findings are detailed separately. - FOLLOW UP Follow Up: Patient will follow up with his primary care physician in 1 week to see if her symptoms have improved. Patient was discharged home with Motrin, Vicodin, gabapentin, Valium and heating pad. Patient was advised to rest for the next 5- 7 days. If her symptoms have not resolved in 1 week she will need further evaluation from her PCP and possibly from orthopedic surgery. The patient was discharged home in stable condition. - TIME SPENT Time Spent in Discharge (Minutes): 35 (FAX TO PCP)
[2017-11-26] MEDS ORDERED: INSULIN GLARGINE 300 UNIT/3 ML PEN SUBQ SCH (21:00)
[2017-11-26] MEDS ORDERED: ATORVASTATIN 10 MG TABLET PO SCH (21:00)
== END 2017-11-26 12:12 | disposition home or self-care (01) ==
LOC: EDUNIT# → ED 17:25 → SUPCPDRO 17:25 → OBS 22:08
PROVIDERS: ADMIT Hospitalist; ATTEND Internal Medicine
DX: M25.552 Pain in left hip (principal); M79.652 Pain in left thigh; N13.6 Pyonephrosis; I10 Essential (primary) hypertension; E11.9 Type 2 diabetes mellitus without complications; I25.10 Atherosclerotic heart disease of native coronary artery without angina pectoris; M81.0 Age-related osteoporosis without current pathological fracture; Z90.49 Acquired absence of other specified parts of digestive tract; Z90.710 Acquired absence of both cervix and uterus; Z95.5 Presence of coronary angioplasty implant and graft; Z79.82 Long term (current) use of aspirin; Z79.84 Long term (current) use of oral hypoglycemic drugs; Z79.4 Long term (current) use of insulin
CPT/HCPCS: 36415; 72131; 73501; 74176; 80048; 81001; 85025; 85651; 86140; 87086; 96372; 99284; A9270; G0378; 81003

== ENCOUNTER 2019-05-01 11:03 | Outpatient (CLI) | payer MEDICARE, BC | END 2019-05-01 11:04 | disposition home or self-care (01) | LOC: DI 11:03 | PROVIDERS: ATTEND Family Medicine | DX: I35.0 Nonrheumatic aortic (valve) stenosis (principal) | CPT/HCPCS: 93306 ==

== ENCOUNTER 2019-11-08 08:00 | Outpatient (CLI) | payer MEDICARE, BC | END 2019-11-08 23:59 | disposition home or self-care (01) | LOC: LAB.WCP 08:00 | PROVIDERS: ATTEND Family Medicine | DX: M54.5 Low back pain (principal) | CPT/HCPCS: 81002 ==

== ENCOUNTER 2019-11-08 12:22 | Outpatient (CLI) | payer MEDICARE, BC ==
--- NOTE | 2019-11-09 05:51 | XRAY Report ---
Reason: TRIGGER FINGER OF RIGHT RING FINGER Procedure Date: 11/08/2019 Accession Number: [id number] / [id number] Procedure: WCP - Hand 3 View RT CPT Code: Final Report FULL RESULT: EXAM: RIGHT HAND RADIOGRAPHY EXAM DATE: 11/08/2019 12:22 PM. CLINICAL HISTORY: Trigger finger of right ring finger. COMPARISON: None. TECHNIQUE: 3 views. FINDINGS: Bones: Normal. No fractures or bone lesions. Joints: Moderate to severe diffuse osteoarthritic changes throughout the hand, worst in the DIP joints. Moderate degenerative changes at the radial aspect of the carpus and first carpometacarpal joint. No subluxations. Soft Tissues: Normal. No soft tissue swelling. IMPRESSION: 1. No acute abnormality seen in the right hand. 2. Moderate to severe osteoarthritis, worse in the DIP joints. RADIA
== END 2019-11-08 23:59 | disposition home or self-care (01) ==
LOC: DI.WCP 12:22
PROVIDERS: ATTEND Family Medicine
DX: M65.341 Trigger finger, right ring finger (principal); M19.041 Primary osteoarthritis, right hand; M54.5 Low back pain
CPT/HCPCS: 81002

== ENCOUNTER 2021-01-06 18:21 | Emergency (ER) | payer MEDICARE, BC ==
[2021-01-06 18:55] LABS: BASOPHILS # (AUTO) 0.1 10^3/uL (0.0-0.1); BASOPHILS % (AUTO) 0.5 %; EOSINOPHILS # (AUTO) 0.2 10^3/uL (0.0-0.7); EOSINOPHILS % (AUTO) 1.9 %; HGB - HEMOGLOBIN 14.3 g/dL (12.0-16.0); LYMPHOCYTES # (AUTO) 2.6 10^3/uL (1.5-3.5); LYMPHOCYTES % (AUTO) 25.9 %; MEAN CORPUSCULAR HEMOGLOBIN 29.3 pg (27.0-31.0); MEAN CORPUSCULAR HGB CONC 32.2 g/dL (32.0-36.0); MEAN PLATELET VOLUME 10.2 fL (7.9-10.8); MONOCYTES # (AUTO) 0.7 10^3/uL (0.0-1.0); MONOCYTES % (AUTO) 6.6 %; NEUTROPHILS # (AUTO) 6.6 10^3/uL (1.5-6.6); NEUTROPHILS % (AUTO) 64.6 %; PLT - PLATELET COUNT 288 10^3/uL (130-450); RED BLOOD COUNT 4.88 10^6/uL (4.20-5.40); RED CELL DISTRIBUTION WIDTH 12.9 % (12.0-15.0); WHITE BLOOD COUNT 10.1 x10^3/uL (4.8-10.8)
[2021-01-06] MEDS ORDERED: METOPROLOL TARTRATE 50 MG TABLET PO STA (19:01)
--- NOTE | 2021-01-06 19:04 | ED Physician Documentation ---
History of Present Illness - Stated complaint Stated Complaint: HTN - Chief complaint Chief Complaint: Cardiac - History obtained from History obtained from: Patient - History of Present Illness Timing: Today Pain level max: 3 Pain level now: 2 Improved by: nothing Worsened by: nothing - Additonal information Additional information: Patient is a 70-year-old female with a longstanding history of hypertension. Blood pressure fluctuates from the 140s to the 180s normally at home. Tonight she took it and found it to be over 180. She took it again and it was at 200. She states that she has a mild headache, 2 out of 10 currently. Gradual onset. Nothing makes it better or worse. She states she is concerned about the height of her blood pressure. No chest pain. No shortness of breath. No nausea or vomiting. She states she took her losartan prior to arrival. Review of Systems Constitutional: denies: Fever, Chills Respiratory: denies: Cough GI: denies: Vomiting, Diarrhea Skin: denies: Rash Musculoskeletal: denies: Neck pain, Back pain Neurologic: reports: Headache (Headache is described as mild, gradual onset. Nothing makes it better or worse. Has not taken anything for the pain) PD PAST MEDICAL HISTORY - Past Medical History Cardiovascular: Hypertension, Other Respiratory: None Endocrine/Autoimmune: Type 2 diabetes GI: None : Kidney stones HEENT: None Psych: None Musculoskeletal: None Derm: None - Past Surgical History Past Surgical History: Yes General: Cholecystectomy, Appendectomy Ortho: Spine surgery /NURSING INFORMATICS CLINICAL ANALYST: Hysterectomy Cardiovascular: Coronary stent - Present Medications Home Medications: Ambulatory Orders Medication Instructions Recorded Confirmed Aspirin Chewable [St Tushar 81 mg PO DAILY 08/20/13 01/06/21 Aspirin] Simvastatin [Zocor] 20 mg PO QPM 08/20/13 01/06/21 metFORMIN [Glucophage] 500 mg PO BIDWM 08/20/13 01/06/21 Losartan [Cozaar] 20 mg PO BID 11/25/17 01/06/21 Cholecalciferol (Vitamin D3) 2,000 units PO DAILY 11/26/17 01/06/21 [Vitamin D3] Metoprolol Succinate [Toprol Xl] 25 mg PO DAILY #14 01/06/21 - Allergies Allergies/Adverse Reactions: Allergies Allergy/AdvReac Type Severity Reaction Status Date / Time hydromorphone HCl * Allergy Severe Nausea Verified 01/06/21 18:25 [From Dilaudid] doxycycline calcium * Allergy Itching Verified 01/06/21 18:25 [From Vibramycin] doxycycline hyclate * Allergy Itching Verified 01/06/21 18:25 [From Vibramycin] doxycycline monohydrate * Allergy Itching Verified 01/06/21 18:25 [From Vibramycin] oxycodone [From Roxicodone] Allergy Rash Verified 01/06/21 18:25 - Social History Does the pt smoke?: No Smoking Status: Never smoker Does the pt drink ETOH?: No Does the pt have substance abuse?: No - Immunizations Immunizations are current?: Yes - POLST Patient has POLST: No POLST Status: Full Code PD ED PE NORMAL - Vitals Vital signs reviewed: Yes - General General: Alert and oriented X 3, No acute distress, Well developed/nourished, Other (Eyes open in a brightly lit room. No apparent distress.) - HEENT HEENT: Atraumatic, PERRL, EOMI, Ears normal, Moist mucous membranes, Pharynx benign - Neck Neck: Supple, no meningeal sign - Cardiac Cardiac: RRR, Strong equal pulses - Respiratory Respiratory: No respiratory distress, Clear bilaterally - Abdomen Abdomen: Soft, Non tender, Non distended - Derm Derm: Warm and dry - Extremities Extremities: No edema - Neuro Neuro: Alert and oriented X 3, hat and cap parts cutter hand 2-12 intact, No motor deficit, No sensory deficit, Normal speech Eye Opening: Spontaneous Motor: Obeys Commands Verbal: Oriented GCS Score: 15 - Psych Psych: Normal mood, Normal affect Results - Vitals Vitals: Vital Signs - 24 hr 01/06/21 01/06/21 01/06/21 18:27 18:42 19:10 Temperature 37.5 C Heart Rate 120 H 99 99 Respiratory 18 19 Rate Blood Pressure 225/92 H 231/104 H 194/94 H O2 Saturation 100 100 01/06/21 19:42 Temperature Heart Rate 86 Respiratory 13 Rate Blood Pressure 189/86 H O2 Saturation 98 Oxygen O2 Source Room air - EKG (time done) 1853 Rate: Rate (enter#) (94) Rhythm: NSR [place]: Normal Intervals: Normal RI QRS: Normal Ischemia: Normal ST segments, Q waves (Q waves in 2, 3, aVF) - Labs Labs: Microbiology 01/06/21 18:53 Urine Culture - Preliminary Urine,Clean Catch CULTURE IN PROGRESS. RESULTS TO FOLLOW. Laboratory Tests 01/06/21 01/06/21 01/06/21 18:51 18:51 18:51 WBC 10.1 RBC 4.88 Hgb 14.3 Hct 44.4 MCV 91.0 MCH 29.3 MCHC 32.2 RDW 12.9 Plt Count 288 MPV 10.2 Neut # (Auto) 6.6 Lymph # (Auto) 2.6 [place] # (Auto) 0.7 Eos # (Auto) 0.2 Baso # (Auto) 0.1 Absolute Nucleated RBC 0.00 Nucleated RBC % 0.0 Sodium 134 L Potassium 3.1 L Chloride 99 L Carbon Dioxide 24 Anion Gap 11.0 BUN 13 Creatinine 0.7 Estimated GFR (MDRD) 82 L Glucose 204 H Calcium 9.5 Total Bilirubin 1.1 H AST 14 ALT 16 Alkaline Phosphatase 50 Troponin I High Sens 11.3 Total Protein 7.7 Albumin 4.5 Globulin 3.2 Albumin/Globulin Ratio 1.4 Lipase 46 Urine Color Urine Clarity Urine pH Ur Specific [place] Urine Protein Urine Glucose (UA) Urine Ketones Urine Occult Blood Urine Nitrite Urine Bilirubin Urine Urobilinogen Ur Leukocyte Esterase Urine RBC Urine WBC Ur Squamous Epith Cells Urine Bacteria Ur Microscopic Review Urine Culture Comments 01/06/21 18:53 WBC RBC Hgb Hct MCV MCH MCHC RDW Plt Count MPV Neut # (Auto) Lymph # (Auto) [place] # (Auto) Eos # (Auto) Baso # (Auto) Absolute Nucleated RBC Nucleated RBC % Sodium Potassium Chloride Carbon Dioxide Anion Gap BUN Creatinine Estimated GFR (MDRD) Glucose Calcium Total Bilirubin AST ALT Alkaline Phosphatase Troponin I High Sens Total Protein Albumin Globulin Albumin/Globulin Ratio Lipase Urine Color LT. YELLOW Urine Clarity CLEAR Urine pH 7.0 Ur Specific [place] 1.010 Urine Protein NEGATIVE Urine Glucose (UA) NEGATIVE Urine Ketones NEGATIVE Urine Occult Blood TRACE-INTA Urine Nitrite NEGATIVE Urine Bilirubin NEGATIVE Urine Urobilinogen 0.2 (NORMAL) Ur Leukocyte Esterase SMALL H Urine RBC None Seen Urine WBC 6-10 H Ur Squamous Epith Cells RARE Squamous Urine Bacteria None Seen Ur Microscopic Review INDICATED Urine Culture Comments INDICATED - Rads (name of study) head CT Radiology: Prelim report reviewed, EMP read contemporaneously, See rad report (no acute findings) PD MEDICAL DECISION MAKING - ED course Complexity details: reviewed results, re-evaluated patient, considered differential, d/w patient ED course: Patient is well-appearing, nontoxic. Afebrile. No focal neurological deficits. No acute findings on head CT, laboratory testing. Blood pressure decreased with metoprolol. Patient feels much better. Headache resolved. No evidence of stroke. No evidence of acute coronary syndrome. No evidence of endorgan damage. Patient counseled regarding signs and symptoms for which I believe and urgent re-evaluation would be necessary. Patient with good understanding of and agreement to plan and is comfortable going home at this time This document was made in part using voice recognition software. While efforts are made to proofread this document, sound alike and grammatical errors may occur. Departure - Departure Disposition: Home, Self Care Clinical Impression: Hypertension Qualifiers: Hypertension type: unspecified Qualified Code(s): I10 - Essential (primary) hypertension Headache Qualifiers: Headache type: unspecified Headache chronicity pattern: acute headache Intractability: not intractable Qualified Code(s): R51.9 - Headache, unspecified Condition: Good Instructions: ED HTN Established Follow-Up: your,doctor in 1 week [Other] Prescriptions: Metoprolol Succinate [Toprol Xl] 25 mg PO DAILY #14 Comments: Follow-up with your doctor for further care. Your laboratory testing, head CT and EKG did not show any acute abnormalities. Keep track of your blood pressure at home. It is normal for it to fluctuate several points throughout the day. You should keep track of your blood pressure at home and follow-up with your doctor so that you can have your medications adjusted. Return for worsening headaches, chest pain or shortness of breath. Also return for any neurological deficits such as weakness, numbness or visual changes. Discharge Date/Time: 01/06/21 19:53
[2021-01-06 19:12] LABS: ALBUMIN 4.5 g/dL (3.2-5.5); ALBUMIN/GLOBULIN RATIO 1.4 (1.0-2.2); BILIRUBIN,TOTAL 1.1 mg/dL (0.2-1.0); CALCIUM 9.5 mg/dL (8.5-10.3); CREATININE 0.7 mg/dL (0.4-1.0); TOTAL PROTEIN 7.7 g/dL (6.7-8.2)
--- NOTE | 2021-01-06 19:16 | XRAY Report ---
PROCEDURE: Chest 1 View X-Ray INDICATIONS: Chest pain TECHNIQUE: One view of the chest was acquired. COMPARISON: None FINDINGS: Surgical changes and devices: None. Lungs and pleura: No pleural effusions or pneumothorax. Lungs are clear. Mediastinum: Mediastinal contours appear normal. Heart size is normal. Bones and chest wall: No suspicious bony lesions. Overlying soft tissues appear unremarkable. IMPRESSION: No acute cardiopulmonary abnormality Reviewed by: Amandeep Woo on 01/06/2021 7:15 PM PST Approved by: Amandeep Woo on 01/06/2021 7:15 PM PST Station ID: [id number]
--- NOTE | 2021-01-06 19:31 | CT Report ---
PROCEDURE: HEAD WO INDICATIONS: headache TECHNIQUE: Noncontrast 4.5 mm thick angled axial sections acquired from the foramen magnum to the vertex. For r adiation dose reduction, the following was used: automated exposure control, adjustment of mA and/or kV according to patient size. COMPARISON: None. FINDINGS: Image quality: Excellent. CSF spaces: Basal cisterns are patent. No extra-axial fluid collections. Ventricles are normal in size and shape. Subcortical and periventricular hypodensities are consistent with microvascular isch emic disease. Brain: No midline shift. No intracranial masses or hemorrhage. [place]-white matter interface is norm al. Skull and face: Calvarium and visualized facial bones are intact, without suspicious lesions. Sinuses: Visualized sinuses and mastoids are clear. IMPRESSION: No acute intracranial abnormality. Reviewed by: Amandeep Woo on 01/06/2021 7:30 PM [facility] Approved by: Amandeep Woo on 01/06/2021 7:30 PM [facility] Station ID: [id number]
[2021-01-06 19:43] VITALS: BP 189/86
[2021-01-06 20:12] LABS: BILIRUBIN,URINE NEGATIVE (NEGATIVE); CLARITY,URINE CLEAR (CLEAR); GLUCOSE, URINE (UA) NEGATIVE (NEGATIVE); KETONES,URINE (UA) NEGATIVE (NEGATIVE); LEUKOCYTE ESTERASE, URINE SMALL (NEGATIVE); NITRITE,URINE NEGATIVE (NEGATIVE); OCCULT BLOOD,URINE TRACE-INTA (NEGATIVE); PROTEIN,URINE NEGATIVE (NEGATIVE); UROBILINOGEN,URINE 0.2 (NORMAL) E.U./dL (NORMAL)
[2021-01-06 20:19] LABS: BACTERIA,URINE None Seen /HPF (None Seen); RBC,URINE None Seen /HPF (0-5); SQUAMOUS EPITHELIAL CELL,UR RARE Squamous (<= Few)
== END 2021-01-06 19:53 | disposition home or self-care (01) ==
LOC: ED 18:21
DX: I10 Essential (primary) hypertension (principal); R51.9 Headache, unspecified; E11.9 Type 2 diabetes mellitus without complications; Z79.84 Long term (current) use of oral hypoglycemic drugs
CPT/HCPCS: 36415; 70450; 71045; 80053; 81001; 83690; 84484; 85025; 87077; 87086; 87181; 93005; 99284; A9270; 81003

== ENCOUNTER 2021-07-01 07:00 | Outpatient (CLI) | payer MEDICARE, BC ==
[2021-07-01 20:15] LABS: FECAL OCCULT BLOOD (FIT) NEGATIVE (NEGATIVE)
== END 2021-07-01 23:59 | disposition home or self-care (01) ==
LOC: LAB.R 07:00
PROVIDERS: ATTEND Nurse Practitioner
DX: Z12.11 Encounter for screening for malignant neoplasm of colon (principal)
CPT/HCPCS: 82274

== ENCOUNTER 2022-08-19 13:00 | Outpatient (CLI) | payer MEDICARE, BC ==
[2022-08-19 20:34] LABS: BASOPHILS % (AUTO) 0.4 %; EOSINOPHILS # (AUTO) 0.1 10^3/uL (0.0-0.7); EOSINOPHILS % (AUTO) 1.5 %; HCT - HEMATOCRIT 37.3 % (37.0-47.0); HGB - HEMOGLOBIN 12.1 g/dL (12.0-16.0); LYMPHOCYTES # (AUTO) 1.6 10^3/uL (1.5-3.5); LYMPHOCYTES % (AUTO) 18.3 %; MEAN CORPUSCULAR HEMOGLOBIN 28.3 pg (27.0-31.0); MEAN CORPUSCULAR HGB CONC 32.4 g/dL (32.0-36.0); MEAN CORPUSCULAR VOLUME 87.1 fL (81.0-99.0); MEAN PLATELET VOLUME 10.9 fL (7.9-10.8); MONOCYTES % (AUTO) 10.7 %; NEUTROPHILS # (AUTO) 6.1 10^3/uL (1.5-6.6); NEUTROPHILS % (AUTO) 68.4 %; PLT - PLATELET COUNT 305 10^3/uL (130-450); RED BLOOD COUNT 4.28 10^6/uL (4.20-5.40); RED CELL DISTRIBUTION WIDTH 13.2 % (12.0-15.0); WHITE BLOOD COUNT 8.9 x10^3/uL (4.8-10.8)
[2022-08-19 20:48] LABS: ALBUMIN 3.6 g/dL (3.2-5.5); ALBUMIN/GLOBULIN RATIO 1.1 (1.0-2.2); BILIRUBIN,TOTAL 0.5 mg/dL (0.2-1.0); CALCIUM 9.4 mg/dL (8.5-10.3); CREATININE 0.6 mg/dL (0.4-1.0); POTASSIUM 3.7 mmol/L (3.5-5.0); TOTAL PROTEIN 6.9 g/dL (6.7-8.2)
[2022-08-19 21:02] LABS: THYROID STIMULATING HORMONE 1.62 uIU/mL (0.34-5.60)
[2022-08-19 21:08] LABS: ESTIMATED AVERAGE GLUCOSE 157 mg/dL (70-100); HEMOGLOBIN A1c% 7.1 % (4.27-6.07)
== END 2022-08-19 23:59 | disposition home or self-care (01) ==
LOC: LAB.N 13:00
PROVIDERS: ATTEND Family Medicine
DX: E11.9 Type 2 diabetes mellitus without complications (principal); R55 Syncope and collapse; E78.5 Hyperlipidemia, unspecified; I25.10 Atherosclerotic heart disease of native coronary artery without angina pectoris
CPT/HCPCS: 36415; 80053; 83036; 84443; 85025

== ENCOUNTER 2022-08-19 19:53 | Outpatient (CLI) | payer MEDICARE, BC ==
--- NOTE | 2022-08-20 09:08 | XRAY Report ---
PROCEDURE: Sacrum/Coccyx INDICATIONS: COCCYGEAL PAIN TECHNIQUE: 3 views of the sacrum and coccyx acquired. COMPARISON: X-ray lumbar spine 08/11/2022 FINDINGS: Bones: No fractures or dislocations. No suspicious bony lesions. Degenerative disc and foraminal c hanges are present at L5-S1. Soft tissues: Visualized bowel gas pattern is normal. No suspicious soft tissue densities. IMPRESSION: Degenerative changes at L5-S1. No visualized acute fracture or dislocation. However, occult injury cannot be excluded. Recommend norman rt interval imaging follow-up in 7-10 days as clinically indicated for additional evaluation. Reviewed by: Brittany Lai MD on 08/20/2022 9:06 AM PDT Approved by: Brittany Lai MD on 08/20/2022 9:06 AM PDT Station ID: [id number]
--- NOTE | 2022-08-20 09:11 | XRAY Report ---
PROCEDURE: Ribs Bilat w/Chest 4 View INDICATIONS: RIB PAIN TECHNIQUE: 4 views of the bilateral ribs were acquired, along with a single view chest. COMPARISON: Chest x-ray 01/06/2021 FINDINGS: Surgical changes and devices: None. Bones and chest wall: No fractures or dislocations. No suspicious bony lesions. Overlying soft tis sues appear unremarkable. Lungs and pleura: No pleural effusions or pneumothorax. Lungs appear clear. Mediastinum: Mediastinal contours appear normal. Heart size is normal. IMPRESSION: No visualized acute fracture or dislocation. However, occult injury cannot be excluded. Recommend norman rt interval imaging follow-up in 7-10 days as clinically indicated for additional evaluation. Reviewed by: Brittany Lai MD on 08/20/2022 9:10 AM PDT Approved by: Brittany Lai MD on 08/20/2022 9:10 AM PDT Station ID: [id number]
== END 2022-08-19 19:54 | disposition home or self-care (01) ==
LOC: DI 19:53
PROVIDERS: ATTEND Family Medicine
DX: M47.817 Spondylosis without myelopathy or radiculopathy, lumbosacral region (principal); M51.37 Other intervertebral disc degeneration, lumbosacral region; R07.81 Pleurodynia

== ENCOUNTER 2022-08-19 19:58 | Outpatient (CLI) | payer MEDICARE, BC ==
--- NOTE | 2022-08-20 11:47 | XRAY Report ---
PROCEDURE: Lumbar Spine 2 View INDICATIONS: BACK PAIN, LUMBAR TECHNIQUE: 3 views of the lumbar spine were acquired. COMPARISON: CT lumbar spine 11/25/2017 FINDINGS: Bones: 5 [id number] vertebrae are present. There is normal bony alignment. There is an approxi mate 41% compression deformity at L4. Compression deformities are present at L1 as well as T12. Howev er, they are poorly visualized secondary to technique as well as osteopenia. It is noted compression deformities at L1 and L4 were present on CT exam of 2018 with the T12 compression deformity appearing new. Multilevel degenerative changes are present. Severe disc and foraminal narrowing are noted L5-S 1 as well as severe foraminal narrowing at L4-5. No suspicious bony lesions. Soft tissues: Overlying bowel gas pattern is normal. No suspicious soft tissue calcifications. IMPRESSION: Multilevel degenerative changes. Multilevel compression deformities as described above. If there is a given history of trauma, recomme nd correlation point tenderness at the level of T12, as chronicity is considered indeterminate. Reviewed by: Brittany Lai MD on 08/20/2022 11:46 AM PDT Approved by: Brittany Lai MD on 08/20/2022 11:46 AM PDT Station ID: [id number]
== END 2022-08-19 19:59 | disposition home or self-care (01) ==
LOC: DI 19:58
PROVIDERS: ATTEND Family Medicine
DX: M85.88 Other specified disorders of bone density and structure, other site (principal); M51.36 Other intervertebral disc degeneration, lumbar region; M48.061 Spinal stenosis, lumbar region without neurogenic claudication; E11.9 Type 2 diabetes mellitus without complications; R55 Syncope and collapse; E78.5 Hyperlipidemia, unspecified; I25.10 Atherosclerotic heart disease of native coronary artery without angina pectoris; M47.817 Spondylosis without myelopathy or radiculopathy, lumbosacral region; M51.37 Other intervertebral disc degeneration, lumbosacral region; R07.81 Pleurodynia
CPT/HCPCS: 36415; 80053; 83036; 84443; 85025

== ENCOUNTER 2023-05-03 10:28 | Outpatient (CLI) | payer MEDICARE, BC ==
[2023-05-03 18:06] LABS: CHOL/HDL RATIO 3.8 (<4.4); CHOLESTEROL 252 mg/dL; HDL CHOLESTEROL 66 mg/dL; LDL CHOLESTEROL,CALCULATED 157 mg/dL; LDL/HDL RATIO 2.4 (<4.4); TRIGLYCERIDES 145 mg/dL; VLDL CHOLESTEROL 29 mg/dL
[2023-05-03 18:43] LABS: CREATININE,URINE 29.9 mg/dL; MICROALBUM/CREATININE RATIO,UR 53.5 ug/mg (<30.0); MICROALBUMIN,URINE 1.6 mg/dL (0-300.0)
[2023-05-03 21:57] LABS: ESTIMATED AVERAGE GLUCOSE 171 mg/dL (70-100); HEMOGLOBIN A1c% 7.6 % (4.27-6.07)
== END 2023-05-03 10:29 | disposition home or self-care (01) ==
LOC: LAB.N 10:28
PROVIDERS: ATTEND Nurse Practitioner
DX: E78.5 Hyperlipidemia, unspecified (principal); E11.311 Type 2 diabetes mellitus with unspecified diabetic retinopathy with macular edema
CPT/HCPCS: 36415; 80061; 82043; 82570; 83036; 83721

== ENCOUNTER 2023-05-31 17:24 | Outpatient (CLI) | payer MEDICARE, BC ==
--- NOTE | 2023-06-01 11:17 | XRAY Report ---
PROCEDURE: Wrist 4 View RT INDICATIONS: PX IN RT WRIST. Fall, pain at base of thumb. TECHNIQUE: 4 views of the wrist were acquired. COMPARISON: Right hand radiographs same day and 11/08/2019 FINDINGS: Bones: No acute fracture or dislocation identified. Severe first CMC and STT joint degenerative soto ges. Soft tissues: No suspicious soft tissue calcifications. IMPRESSION: No acute bony abnormality identified. If there is anatomic snuff box tenderness, consider wrist immob ilization and repeat radiographs in 10-14 days or cross-sectional imaging now. If pain persists with conservative management, consider repeat radiographs in 10-14 days or cross-sectional imaging. Severe first CMC and STT joint degenerative changes are present. Reviewed by: Artem Hyatt MD on 06/01/2023 11:16 AM PDT Approved by: Artem Hyatt MD on 06/01/2023 11:16 AM PDT Station ID: [id number]
--- NOTE | 2023-06-01 11:24 | XRAY Report ---
PROCEDURE: Hand 3 View RT INDICATIONS: PX IN RT WRIST TECHNIQUE: 3 views of the hand(s) acquired. COMPARISON: Right hand radiographs 11/08/2019 FINDINGS: Bones: No acute fracture or dislocation identified. The bones appear demineralized. Polyarticular de generative changes of the hand are present, primarily in a distal distribution. Periarticular lucenci es also demonstrated indeterminate for subchondral cystic change or erosions. Degenerative changes of the base of the thumb present, dictated separately. Soft tissues: No suspicious soft tissue calcifications. IMPRESSION: No acute bony abnormality. If pain persists with conservative management, consider repeat radiographs in 10-14 days or cross-sectional imaging. Reviewed by: Artem Hyatt MD on 06/01/2023 11:22 AM PDT Approved by: Artem Hyatt MD on 06/01/2023 11:22 AM PDT Station ID: [id number]
== END 2023-05-31 17:25 | disposition home or self-care (01) ==
LOC: DI 17:24
PROVIDERS: ATTEND Internal Medicine
DX: M18.11 Unilateral primary osteoarthritis of first carpometacarpal joint, right hand (principal); M19.031 Primary osteoarthritis, right wrist; M19.041 Primary osteoarthritis, right hand

== ENCOUNTER 2023-06-03 16:06 | Outpatient (CLI) | payer MEDICARE, BC ==
--- NOTE | 2023-06-04 09:57 | CT Report ---
PROCEDURE: UPPER EXTREMITY WO - RT INDICATIONS: PAIN IN RIGHT WRIST TECHNIQUE: Noncontrast 2 mm axial sections were acquired through the elbow joint, with coronal and sagittal refo rmats. For radiation dose reduction, the following was used: automated exposure control, adjustment of mA and/or kV according to patient size. COMPARISON: Hand and wrist radiographs dated 05/31/2023. FINDINGS: Image quality: Excellent. Bones: Right wrist alignment is anatomic. Oblique fracture involving medial portion of distal trapez ium with slight medial displacement of the fractured fragment and up to 1.7 mm diastases at fracture site is seen best seen on series 6 image 23. No other fracture or dislocation is noted. Moderate oste oarthritic changes throughout right wrist is seen most notably involving scaphotrapezial joint and fi rst CMC joint with significant joint space narrowing, subchondral sclerosis and cyst formation and ma rginal osteophyte formation. No evidence of avascular necrosis. Soft tissues: Mild soft tissue swelling over dorsal and volar aspect of trapezium fracture site is s een. No abnormal soft tissue calcifications. No soft tissue mass or discrete drainable fluid collecti on. No significant joint effusion. There is no gross full-thickness rupture of the extensor or flexor tendons. IMPRESSION: 1. Slightly displaced oblique fracture through radial aspect of distal trapezium as above. 2. No other fracture or dislocation. Moderate wrist joint osteoarthritis. No suspicious bony lesions. No evidence of avascular necrosis. 3. Mild soft tissue swelling adjacent to radial fracture site. No soft tissue mass or drainable fluid collection. No abnormal soft tissue calcifications. No gross full-thickness wrist tendon rupture. Reviewed by: Андрей Pearce MD on 06/04/2023 9:56 AM PDT Approved by: Андрей Pearce MD on 06/04/2023 9:56 AM PDT Station ID: [id number]
== END 2023-06-03 16:07 | disposition home or self-care (01) ==
LOC: DI 16:06
PROVIDERS: ATTEND Internal Medicine
DX: S62.171A Displaced fracture of trapezium [larger multangular], right wrist, initial encounter for closed fracture (principal); M19.031 Primary osteoarthritis, right wrist

== ENCOUNTER 2023-09-08 08:32 | Outpatient (CLI) | payer MEDICARE, BC ==
[2023-09-08 11:55] LABS: ESTIMATED AVERAGE GLUCOSE 174 mg/dL (70-100); HEMOGLOBIN A1c% 7.7 % (4.27-6.07)
[2023-09-08 12:31] LABS: CHOLESTEROL 155 mg/dL; HDL CHOLESTEROL 51 mg/dL; LDL CHOLESTEROL,CALCULATED 84 mg/dL; LDL/HDL RATIO 1.6 (<4.4); TRIGLYCERIDES 99 mg/dL (48-352); VLDL CHOLESTEROL 20 mg/dL
== END 2023-09-08 08:33 | disposition home or self-care (01) ==
LOC: LAB.N 08:32
PROVIDERS: ATTEND Nurse Practitioner
DX: E11.311 Type 2 diabetes mellitus with unspecified diabetic retinopathy with macular edema (principal); Z51.81 Encounter for therapeutic drug level monitoring; E78.5 Hyperlipidemia, unspecified
CPT/HCPCS: 36415; 80061; 83036; 83721

== ENCOUNTER 2023-12-07 10:08 | Outpatient (CLI) | payer MEDICARE, BC ==
[2023-12-07 12:27] LABS: CHOL/HDL RATIO 2.9 (<4.4); CHOLESTEROL 165 mg/dL; HDL CHOLESTEROL 56 mg/dL; LDL CHOLESTEROL,CALCULATED 87 mg/dL; LDL/HDL RATIO 1.6 (<4.4); TRIGLYCERIDES 112 mg/dL (48-352); VLDL CHOLESTEROL 22 mg/dL
[2023-12-07 12:38] LABS: CREATININE,URINE 9.2 mg/dL
[2023-12-07 12:50] LABS: MICROALBUMIN,URINE < 0.7 mg/dL
[2023-12-07 13:28] LABS: ESTIMATED AVERAGE GLUCOSE 169 mg/dL (70-100); HEMOGLOBIN A1c% 7.5 % (4.27-6.07)
== END 2023-12-07 10:09 | disposition home or self-care (01) ==
LOC: LAB.N 10:08
PROVIDERS: ATTEND Nurse Practitioner
DX: E11.311 Type 2 diabetes mellitus with unspecified diabetic retinopathy with macular edema (principal); Z51.81 Encounter for therapeutic drug level monitoring
CPT/HCPCS: 36415; 80061; 82043; 82570; 83036; 83721

== ENCOUNTER 2024-03-28 08:53 | Outpatient (CLI) | payer MEDICARE, BC ==
[2024-03-28 12:12] LABS: BASOPHILS % (AUTO) 0.5 %; EOSINOPHILS # (AUTO) 0.2 10^3/uL (0.0-0.7); EOSINOPHILS % (AUTO) 2.6 %; HCT - HEMATOCRIT 42.1 % (37.0-47.0); HGB - HEMOGLOBIN 13.3 g/dL (12.0-16.0); LYMPHOCYTES # (AUTO) 1.6 10^3/uL (1.5-3.5); LYMPHOCYTES % (AUTO) 21.1 %; MEAN CORPUSCULAR HEMOGLOBIN 28.9 pg (27.0-31.0); MEAN CORPUSCULAR HGB CONC 31.6 g/dL (32.0-36.0); MEAN CORPUSCULAR VOLUME 91.3 fL (81.0-99.0); MEAN PLATELET VOLUME 11.6 fL (7.9-10.8); MONOCYTES # (AUTO) 0.6 10^3/uL (0.0-1.0); MONOCYTES % (AUTO) 8.6 %; NEUTROPHILS # (AUTO) 4.9 10^3/uL (1.5-6.6); NEUTROPHILS % (AUTO) 66.7 %; PLT - PLATELET COUNT 258 10^3/uL (130-450); RED BLOOD COUNT 4.61 10^6/uL (4.20-5.40); RED CELL DISTRIBUTION WIDTH 13.5 % (12.0-15.0); WHITE BLOOD COUNT 7.4 x10^3/uL (4.8-10.8)
[2024-03-28 12:13] LABS: ESTIMATED AVERAGE GLUCOSE 169 mg/dL (70-100); HEMOGLOBIN A1c% 7.5 % (4.27-6.07)
[2024-03-28 12:24] LABS: ALBUMIN 4.1 g/dL (3.2-5.5); ALBUMIN/GLOBULIN RATIO 1.6 (1.0-2.2); BILIRUBIN,TOTAL 0.9 mg/dL (0.2-1.0); CALCIUM 9.7 mg/dL (8.5-10.3); CREATININE 0.7 mg/dL (0.6-1.3); POTASSIUM 4.2 mmol/L (3.5-4.5); TOTAL PROTEIN 6.7 g/dL (6.4-8.9)
[2024-03-28 12:37] LABS: CREATININE,URINE 41.4 mg/dL; MICROALBUM/CREATININE RATIO,UR 31.4 ug/mg (<30.0); MICROALBUMIN,URINE 1.3 mg/dL
== END 2024-03-28 08:54 | disposition home or self-care (01) ==
LOC: LAB.N 08:53
PROVIDERS: ATTEND Nurse Practitioner
DX: E11.311 Type 2 diabetes mellitus with unspecified diabetic retinopathy with macular edema (principal); I10 Essential (primary) hypertension
CPT/HCPCS: 36415; 80053; 82043; 82570; 83036; 85025

== ENCOUNTER 2024-05-04 08:00 | Outpatient (CLI) | payer MEDICARE, BC ==
[2024-05-08 16:44] LABS: FECAL OCCULT BLOOD (FIT) NEGATIVE (NEGATIVE)
== END 2024-05-04 23:59 | disposition home or self-care (01) ==
LOC: LAB.R 08:00
PROVIDERS: ATTEND Nurse Practitioner
DX: Z12.11 Encounter for screening for malignant neoplasm of colon (principal)
CPT/HCPCS: 82274

== ENCOUNTER 2024-06-14 10:01 | Outpatient (CLI) | payer MEDICARE, BC ==
--- NOTE | 2024-06-15 09:12 | Mammography Report ---
BILATERAL DIGITAL SCREENING MAMMOGRAM 3D/2D: 06/14/2024 CLINICAL: Routine screening. No prior exams were available for comparison. There are scattered areas of fibroglandular density in both breasts (category b / 25%-50% glandular t issue). No significant masses, calcifications, or other findings are seen in either breast. IMPRESSION: NEGATIVE There is no mammographic evidence of malignancy. A 1 year screening mammogram is recommended. Based on the Tyrer Cuzick model (a risk assessment model) the patient's lifetime risk is 7.9% and her 10 year risk is 0.0%. According to the ACR, ACS, and NCCN guidelines, an annual breast MRI exam daquan g with mammogram is recommended if the patient's lifetime risk is 20% or greater. This exam was interpreted at Station ID: [id number]. NOTE: For mammograms, a report in lay terms will be sent to the patient. Approximately 15% of breast malignancies will not be visualized mammographically. In the management of a palpable breast mass, a negative mammogram must not discourage biopsy of a clinically suspicious lesion. Electronically Signed By: Artem petty/marisol:06/14/2024 12:04:49 letter sent: No_Letter ACR BI-RADS Category 1: Negative 3341F PARENCHYMAL PATTERN: (A) - The breast(s) demonstrate(s) scattered fibroglandular densities. BI-RADS CATEGORY: (1) - 1 RECOMMENDATION: (ANNUAL) - Recommend routine annual screening mammography. [id number] 1 year screening LATERALITY: (B)
== END 2024-06-14 10:02 | disposition home or self-care (01) ==
LOC: DI 10:01
PROVIDERS: ATTEND Nurse Practitioner
DX: Z12.31 Encounter for screening mammogram for malignant neoplasm of breast (principal); R92.323 Mammographic fibroglandular density, bilateral breasts

== ENCOUNTER 2024-06-16 14:03 | Outpatient (CLI) | payer MEDICARE, BC ==
--- NOTE | 2024-06-16 17:02 | DEXA Report ---
PROCEDURE: Dexa Spine and/or Hip INDICATIONS: POST MENOPAUSAL TECHNIQUE: Dual energy x-ray absorptiometry (DXA) was performed on a [employer] System. Regions measur ed are the AP Spine, femoral neck, and if needed forearm. COMPARISON: 07/01/2017 FINDINGS: Lumbar Spine: Bone Mineral Density: 1.234 g/cm/cm,T score: 0.3. Since the most recent prior study, there has been a statistically significant increase in bone mineral density by 13.4 percent. Left Femoral Neck: Bone Mineral Density: 0.669 g/cm/cm, T score: -2.7. Left Hip: Bone Mineral Density: 0.686 g/cm/cm,T score: -2.6. Since the most recent prior study, there has been a statistically significant decrease in bone mineral density by XXX percent. 12.8% (T score greater or equal to -1.0: NORMAL) (T score from -1.1 to -2.4: OSTEOPENIA) (T score less than or equal to -2.5 to: OSTEOPOROSIS) Impression: By WHO criteria, this patient has osteoporosis. Interval statistical increase in bone mineral density of the lumbar spine. Interval statistical decre ase in bone mineral density of the hip. Patients with diagnosis of osteoporosis or osteopenia should have regular bone mineral density assess ment. For those eligible for Medicare, routine testing is allowed once every 2 years. Testing frequ ency can be increased for patients who have rapidly progressing disease or for those who are receivin g medical therapy to restore bone mass. Reviewed by: Gadiel Finley MD on 06/16/2024 5:00 PM PDT Approved by: Gadiel Finley MD on 06/16/2024 5:00 PM PDT Station ID: [id number]
== END 2024-06-16 14:04 | disposition home or self-care (01) ==
LOC: DI 14:03
PROVIDERS: ATTEND Nurse Practitioner
DX: M81.0 Age-related osteoporosis without current pathological fracture (principal); Z78.0 Asymptomatic menopausal state

== ENCOUNTER 2024-07-26 07:29 | Outpatient (CLI) | payer MEDICARE, BC ==
[2024-07-26 12:27] LABS: ESTIMATED AVERAGE GLUCOSE 169 mg/dL (70-100); HEMOGLOBIN A1c% 7.5 % (4.27-6.07)
== END 2024-07-26 07:30 | disposition home or self-care (01) ==
LOC: LAB.N 07:29
PROVIDERS: ATTEND Nurse Practitioner
DX: E11.311 Type 2 diabetes mellitus with unspecified diabetic retinopathy with macular edema (principal)
CPT/HCPCS: 36415; 83036

== ENCOUNTER 2024-07-26 07:35 | Outpatient (CLI) | payer MEDICARE, BC ==
--- NOTE | 2024-07-26 13:27 | XRAY Report ---
PROCEDURE: Hip w/Pelvis 2-3V RT INDICATIONS: HIP PAIN, RIGHT TECHNIQUE: 2 views of the hip were acquired. COMPARISON: None. FINDINGS: Bones: No fractures or dislocations. No suspicious bony lesions. Moderate bilateral degenerative hip joint space narrowing. Minimal particular osteophytes. No erosions. Degenerative changes are pres ent within the lower lumbar spine. Soft tissues: No suspicious soft tissue calcifications or masses. IMPRESSION: Moderate bilateral hip arthritic change. Reviewed by: Brittany Lai MD on 07/26/2024 1:26 PM PDT Approved by: Brittany Lai MD on 07/26/2024 1:26 PM PDT Station ID: [id number]
== END 2024-07-26 07:36 | disposition home or self-care (01) ==
LOC: DI.N 07:35
PROVIDERS: ATTEND Nurse Practitioner
DX: M16.0 Bilateral primary osteoarthritis of hip (principal); E11.311 Type 2 diabetes mellitus with unspecified diabetic retinopathy with macular edema
CPT/HCPCS: 36415; 83036